=== PATIENT | female | born 1940 | race Caucasian/White ===

== ENCOUNTER 2024-02-19 12:07 | Emergency (ER) | payer MEDICARE, OTHER, SELFPAY ==
--- NOTE | ~2024-02-19 | US_ITS ---
EXAMINATION: US TRIPLEX LOWER EXTREMITY, BILATERAL CLINICAL INFORMATION: Pain COMPARISON: None available. TECHNIQUE: Color-flow triplex imaging with spectral analysis and compression Doppler were performed on the bilateral lower extremities. FINDINGS: Respiratory variation, normal compression and augmented flow are noted throughout the bilateral lower extremities. The visualized common femoral vein, superficial femoral vein, profunda femoral vein, popliteal vein and midcalf peroneal and posterior tibial venous segments show no evidence of deep venous thrombosis bilaterally. Popliteal fossa Rea's cyst measuring 4.1 x 0.9 x 2.8 cm. US/US venous duplex LE BI IMPRESSION: No evidence of deep venous thrombosis involving the bilateral lower extremities. Left Rea's cyst measuring 4.1 cm. Electronically signed by: Grey Galindo MD 02/19/2024 06:26 PM EDT
--- NOTE | ~2024-02-19 | CT_ITS ---
EXAMINATION: CT ABDOMEN AND PELVIS WITH CONTRAST CLINICAL INFORMATION: Right sided abdominal pain. S/P cholecystectomy COMPARISON: 10/25/2016 TECHNIQUE: Multidetector volumetric imaging was performed from the superior aspect of the liver through the pubic symphysis following administration of 85 mL Omnipaque 300 intravenous contrast. Sagittal and coronal reformatted images were obtained on the technologist workstation.. This CT examination was performed using dose optimization techniques as appropriate, variously including the following: *Automated exposure control *Adjustment of mA and/or kV according to patient size (this includes techniques or standardized protocols for targeted exams where dose is matched to indication/reason for exam; i.e. extremities or head) *Use of iterative reconstruction technique DLP: 365 mGy-cm FINDINGS: LUNG BASES: The visualized lung bases are unremarkable. Moderate hiatal hernia LIVER, GALLBLADDER, AND BILIARY TREE: The liver is normal in size, shape, and attenuation. No focal hepatic lesion or biliary ductal dilatation is present. Gallbladder surgically absent with multiple surgical clips in the gallbladder fossa PANCREAS: Unremarkable. SPLEEN: Enlarged measuring 14.5 cm in length ADRENAL GLANDS: Unremarkable. KIDNEYS AND URETERS: The kidneys are normal in size, shape, and attenuation. No hydronephrosis, hydroureter, or perinephric stranding. No calculi. BLADDER: Unremarkable. GASTROINTESTINAL TRACT: Anastomotic staple line in the rectosigmoid colon. Few scattered diverticula are seen but no colonic wall thickening or pericolonic inflammatory change to suggest diverticulitis within the redundant colon. Visualized small bowel unremarkable ABDOMINAL WALL: Postoperative changes LYMPHOVASCULAR STRUCTURES: Vascular calcification within the aortoiliac system PELVIC VISCERA: Presumably surgically absent OSSEOUS STRUCTURES: Multilevel degenerative changes in the spine CT/CT abdomen pelvis w IV con IMPRESSION: Chronic appearing and postoperative changes as described. Electronically signed by: Alejandro Aguilar MD 02/19/2024 06:07 PM EDT RP
[2024-02-19 12:12] VITALS: BP 152/77; PULSE 109; RESP 18; TEMP 36.9; O2SAT 99; BMI 25.2
--- NOTE | 2024-02-19 12:20 | ED.GENADULT ---
HPI - General Adult General Chief complaint: General Medical Stated complaint: multiple problems Time Seen by Provider: 02/19/24 16:03 Source: patient, RN notes reviewed and old records reviewed Limitations: no limitations History of Present Illness ED Provider: Sera HPI narrative: 83F with past medical history significant for anemia, anxiety, bipolar disorder, cholecystectomy, chronic kidney disease, hypertension, depression, fatty liver, fibromyalgia, GERD, hiatal hernia, IBS, osteoarthritis, malabsorption presents with a chief complaint of RUQ pain, R calf pain and L foot swelling. Patient states she has had RUQ pain for 3 months, which has been worse recently which is why she presented today. Pain radiates to back and into R axilla and chest. Patient presents empty tramadol bottle and says she has been taking with mild relief. Admits to weight loss of 20lbs , diarrhea, and temperature of 100.1, incontience of bladder at baseline. Denies: incontinence of urine, nausea, vomiting, constipation, tarry stools. Patient also states she has had R calf pain, does not know how long this has been going on. States limbs is numb , cold to touch. Denies swelling or redness of the limb. Patient presents with L pain and swelling of the plantar surface of the foot. She is worried about infection . She does not know how long this has been going on, denies redness. She was seen at [facility] 01/11 for similar complaints, and provided records of that visit. Patient reports that after that admission she was discharged to rehab. She did not feel that she needs to go to rehab and does not wish to go back to rehab Related Data Previous Rx's ?Medication ?Instructions ?Recorded tramadol 25 mg tablet 25 mg PO Q4-6H PRN severe pain 02/19/24 (scale score 7-10) #12 tabs Allergies Allergy/AdvReac Type Severity Reaction Status Date / Time amoxicillin [AMOXICILLIN] Allergy Unknown VIRAL Verified 02/19/24 12:20 MENINGITIS Review of Systems Constitutional: Constitutional: Reports body ache(s), Reports chills, Reports fever(s), Reports lethargy, Reports weakness and Reports weight loss (20lbs stated by patient) ENT: Reports dysphagia Cardiovascular: Cardiovascular: Reports chest pain, Reports leg edema and Denies dyspnea Respiratory: Respiratory: Denies cough and Denies dyspnea Gastrointestinal: Gastrointestinal: Denies melena, Denies hematochezia, Denies coffee ground emesis, Reports dysphagia, Reports diarrhea, Denies nausea and Denies vomiting Musculoskeletal: Musculoskeletal: Reports arthralgias, Reports joint swelling and Reports muscle weakness Neurologic: Reports weakness PMFSH Social History Social History Smoked in Last 30 Days: No Use of substances other than those prescribed or required for medical reasons: No Advance Directives: No Advance Directives Information Provided: No Physical Exam ED Vital Signs: Vital Signs - 24 hr 02/19/24 12:12 02/19/24 15:53 02/19/24 18:42 Temperature 98.4 F Pulse Rate 109 H 109 H 100 Respiratory Rate 18 18 18 Blood Pressure 152/77 H 139/82 151/84 H Pulse Oximetry 99 97 98 Oxygen Delivery Method Room Air Room Air Room Air 02/19/24 19:24 Temperature 98.4 F Pulse Rate 98 Respiratory Rate 18 Blood Pressure 151/84 H Pulse Oximetry 98 Oxygen Delivery Method Room Air BMI result Body Mass Index 25.2 Const General: healthy appearing, no acute distress, alert and awake Nutritional Appearance: well nourished Orientation/consciousness: patient oriented x3 HENMT Head: Yes normocephalic and Yes atraumatic Eyes Eyelids: Yes eyelids normal Conjunctivae: conjunctivae normal Sclerae: sclerae normal Resp Effort & Inspection: normal respiratory effort, able to speak in complete sentences, no audible wheezes and not labored Auscultation: clear to auscultation bilaterally Cardio Rate: regular rate Rhythm: regular rhythm GI Inspection: No distended Palpation (GI): Soft to palpation, Tenderness to palpation present (GI) (diffusely) and no guarding Skin General skin exam: no rashes or lesions noted and elasticity normal Neuro General: patient oriented x3 Extrem Other: Moving all extremities well without any obvious deformities. DP pulses 2+ and equal bilaterally. Course Course Course Narrative: RME performed by Tiera Winn PA-C. Patient is an 83 year old assigned female at presenting to the emergency department with multiple complaints / concerns. Detailed physical exam and review of systems are deferred to the jalousies installer. Labs ordered. Patient placed back in the waiting room pending room availability and results. Reevaluation(s) Reevaluation #1: Discussed workup with the patient, she was provided with a copy of her lab results and imaging results. The patient is stable for discharge at this time. Time: 19:52 Medications Administered Discontinued Medications Generic Name Dose Route Start Last Admin Trade Name Maria Elena PRN Reason Stop Dose Admin Iohexol 100 ml 02/19/24 17:20 02/19/24 17:21 Iohexol 350 Mg/Ml 100 Ml Infus..Btl IV 02/19/24 17:21 85 ml ONCE ONE Administration Tramadol HCl 25 mg 02/19/24 19:03 02/19/24 19:12 Tramadol Hcl 50 Mg Tablet PO 02/19/24 19:04 25 mg ONCE ONE Administration Medical Decision Making Medical Decision Making MDM Narrative: 83-year-old female with past medical history as documented above presents for evaluation of numerous complaints. Her chief complaint appears to be abdominal pain. She has subjective fevers and chills, she is afebrile on arrival to the ER. She is status post cholecystectomy, her abdomen is soft but tender to palpation throughout. Her labs show no worrisome abnormalities, no leukocytosis or significant anemia despite her history of anemia. No left shift. Chemistries are within normal limits, renal function within normal limits. We will get ultrasounds to rule out DVT given the leg pain. We will get a CT scan of the abdomen pelvis to evaluate for any identifiable cause of her pain. She has a history of IBS and this may be chronic abdominal pain. Her vital signs are stable. Differential Diagnosis Differential Diagnoses: The differential diagnosis associated with the presentation includes Chronic abdominal pain IBS UTI DVT Lab Data MDM Lab Attestation statement: I reviewed the patient's lab results. 02/19/24 13:52 02/19/24 13:52 Labs: Lab Results 02/19/24 02/19/24 Range/Units 13:52 15:55 WBC 5.6 (4.8-10.8) X10*3/uL RBC 4.33 (4.20-5.50) X10*6/uL Hgb 12.0 (12.0-16.0) g/dl Hct 37.4 (37.0-47.0) % MCV 86.4 (80.0-98.0) fL MCH 27.7 (27.0-33.0) pg MCHC 32.1 (31.0-35.0) g/dl RDW 16.1 H (11.0-16.0) % Plt Count 202 (160-400) X10*3/uL MPV 9.3 L (9.4-12.3) fL Immature Gran % (Auto) 0.2 (0.0-0.4) % Neut % (Auto) 66.7 (45-73) % Lymph % (Auto) 24.0 (20-40) % Brooke % (Auto) 6.9 (2-11) % Eos % (Auto) 1.8 (0-4) % Baso % (Auto) 0.4 (0-2) % Lymph # (Auto) 1.4 (1.2-4.9) X10*3/uL Brooke # (Auto) 0.4 (0.1-1.2) X10*3/uL Eos # (Auto) 0.1 (0.0-0.4) X10*3/uL Baso # (Auto) 0.0 (0.0-0.2) X10*3/uL Abs Immat Gran (auto) 0.01 (0.00-0.03) X10*3/uL Absolute Neuts (auto) 3.8 (2.0-8.3) x10*3/uL Absolute Nucleated RBC 0.000 (0.0-0.012) X10*3/uL Nucleated RBC % (auto) 0.0 (0.0-0.2) /100WBC Sodium 141 (135-145) mmol/L Potassium 4.0 (3.3-5.1) mmol/L Chloride 105 (96-108) mmol/L Carbon Dioxide 27 (22-29) mmol/L Anion Gap 13 (12-20) BUN 12 (9-16) mg/dL Creatinine 0.81 (0.5-1.4) mg/dL Estim Creat Clear Calc 40.6 Estimated GFR > 60 Random Glucose 85 (60-115) mg/dL Calcium 9.7 (8.4-10.2) mg/dL Magnesium 2.4 (1.6-2.6) mg/dL Total Bilirubin 0.4 (0.0-1.0) mg/dL AST 20 (5-31) U/L ALT 12 (0-31) U/L Alkaline Phosphatase 78 (39-117) U/L Total Protein 7.4 (6.5-8.0) g/dL Albumin 4.3 (3.5-5.0) g/dL Urine Color Yellow Urine Appearance Clear Urine pH 6.0 (5.0-9.0) Ur Specific [place] 1.015 (1.005-1.025) Urine Protein Negative (Neg-Trace) mg/dL Urine Glucose (UA) Negative (Negative) mg/dL Urine Ketones Negative (Negative) mg/dL Urine Blood Negative (Negative) Urine Nitrite Negative (Negative) Ur Leukocyte Esterase Trace H (Negative) Urine RBC 0-2 (0-2) /HPF Urine WBC 0-5 (0-5) /HPF Ur Squamous Epith Cells 0-2 (0-2) /HPF Urine Bacteria None Seen (None Seen) Hyaline Casts 0-2 (0-2) /LPF Influenza Type A (PCR) NEGATIVE (Negative) Influenza Type B (PCR) NEGATIVE (Negative) RSV RNA Qual (PCR) NEGATIVE (Negative) SARS-CoV-2 RNA (RT-PCR) NEGATIVE (Negative) Radiology Impression Discussion of test interpretation with radiology: I have reviewed the radiologist's reading. Radiologist Impression: FINDINGS: Respiratory variation, normal compression and augmented flow are noted throughout the bilateral lower extremities. The visualized common femoral vein, superficial femoral vein, profunda femoral vein, popliteal vein and midcalf peroneal and posterior tibial venous segments show no evidence of deep venous thrombosis bilaterally. Popliteal fossa Rea's cyst measuring 4.1 x 0.9 x 2.8 cm. US/US venous duplex LE BI IMPRESSION: No evidence of deep venous thrombosis involving the bilateral lower extremities. Left Rea's cyst measuring 4.1 cm. Electronically signed by: Grey Galindo MD 02/19/2024 06:[address]/CT abdomen pelvis w IV con IMPRESSION: Chronic appearing and postoperative changes as described. Electronically signed by: Alejandro Aguilar MD 02/19/2024 06:07 PM EDT Discharge Plan Discharge Clinical Impression: Abdominal pain, Chronic leg pain Patient Disposition: Home, Self-Care Instructions: Abdominal Pain (ED) Additional Instructions: Your workup in the ER today was reassuring. This includes your blood work, urinalysis, viral swabs. Follow-up with your primary doctor for further evaluation and management You may return for new or worsening symptoms Prescriptions: New tramadol 25 mg tablet 25 mg PO Q4-6H PRN (Reason: severe pain (scale score 7-10)) Qty: 12 0RF Interventions: ED Discharge Assessment Last Done: 02/19/24 19:24 Discharge Date/Time: 02/19/24 19:25 Print Language: Uzbek
[2024-02-19 14:07] LABS: MANUAL DIFF FLAG NO
[2024-02-19 14:24] LABS: Alanine Aminotransferase 12 U/L (0-31); Albumin Level 4.3 g/dL (3.5-5.0); Alkaline Phosphatase 78 U/L (39-117); Anion Gap 13 (12-20); Aspartate Amino Transferase 20 U/L (5-31); Bilirubin Total 0.4 mg/dL (0.0-1.0); Blood Urea Nitrogen 12 mg/dL (9-16); Calcium 9.7 mg/dL (8.4-10.2); Carbon Dioxide 27 mmol/L (22-29); Chloride 105 mmol/L (96-108); Creatinine Clr Calc Pharmacy 40.6; Estimated Glomerular Filt Rate > 60; Glucose Random 85 mg/dL (60-115); Magnesium 2.4 mg/dL (1.6-2.6); Sodium 141 mmol/L (135-145); Total Protein 7.4 g/dL (6.5-8.0)
[2024-02-19 14:26] LABS: Basophils Percent Auto 0.4 % (0-2); Eosinophils Absolute Auto 0.1 X10*3/uL (0.0-0.4); Eosinophils Percent Auto 1.8 % (0-4); Hematocrit 37.4 % (37.0-47.0); Imm Gran Abs Auto 0.01 X10*3/uL (0.00-0.03); Imm Gran Pct Auto 0.2 % (0.0-0.4); Lymphocytes Absolute Auto 1.4 X10*3/uL (1.2-4.9); Mean Corpuscular HGB Conc 32.1 g/dl (31.0-35.0); Mean Corpuscular Hemoglobin 27.7 pg (27.0-33.0); Mean Corpuscular Volume 86.4 fL (80.0-98.0); Mean Platelet Volume 9.3 fL (9.4-12.3); Monocytes Absolute Auto 0.4 X10*3/uL (0.1-1.2); Monocytes Percent Auto 6.9 % (2-11); Neutrophils Absolute Auto 3.8 x10*3/uL (2.0-8.3); Neutrophils Percent Auto 66.7 % (45-73); Platelet Count 202 X10*3/uL (160-400); Red Blood Count 4.33 X10*6/uL (4.20-5.50); Red Cell Distribution Width 16.1 % (11.0-16.0); White Blood Count 5.6 X10*3/uL (4.8-10.8)
[2024-02-19 15:04] LABS: Influenza A PCR NEGATIVE (Negative); Influenza B PCR NEGATIVE (Negative); Resp Syncy Virus RNA Qual PCR NEGATIVE (Negative); SARS COV2 PCR INHOUSE NEGATIVE (Negative)
--- NOTE | 2024-02-19 15:17 | PC.NURSE ---
Patient offers multiple complaints- states she has no teeth, the she needs a right knee replacement, that her 6 is sticking 6 inches out , that she is having troube swalowing on the right side, has lost 20lbs over the last few months. Reports feet are numb and that she vomits food back up after eating.
[2024-02-19 15:53] VITALS: BP 139/82; PULSE 109; RESP 18; O2SAT 97
[2024-02-19 16:01] LABS: Appearance Urine Clear; Color Urine Yellow; Glucose Urine UA Negative (Negative); Leukocyte Esterase Urine Trace (Negative); Nitrite Urine Negative (Negative); Specific Gravity - Urine 1.015 (1.005-1.025); UMIC TRIGGER UACC YES; Urine Blood Negative (Negative); Urine Ketones Negative (Negative); Urine Protein Negative (Neg-Trace)
[2024-02-19 16:03] LABS: Bacteria Urine None Seen (None Seen); Hyaline Casts Urine 0-2 /LPF (0-2); RBC Urine 0-2 /HPF (0-2); Squamous Epithelial Cell Urine 0-2 /HPF (0-2); WBC Urine 0-5 /HPF (0-5)
[2024-02-19] MEDS: iohexoL 350 MG/ML 100 ML INFUS..BTL IV (17:21)
--- NOTE | 2024-02-19 17:27 | ECG_ITS ---
Test Reason : PAIN Blood Pressure : / mmHG Vent. Rate : 095 BPM Atrial Rate : 095 BPM P-R Int : 212 ms QRS Dur : 096 ms QT Int : 400 ms P-R-T Axes : 053 042 059 degrees QTc Int : 502 ms Sinus rhythm with 1st degree A-V block Low voltage QRS Prolonged QT Abnormal ECG When compared with ECG of 25-OCT-2016 14:56, QT has lengthened Referred By: Dl Zamora Electronically Signed By:JASIEL MUÑOZ
[2024-02-19 18:42] VITALS: BP 151/84; PULSE 100; RESP 18; O2SAT 98
--- NOTE | 2024-02-19 18:58 | PC.NURSE ---
Report received from Karlene LEAL, assume care of pt at this time
[2024-02-19] MEDS: traMADoL HCL 50 MG TABLET 25 MG PO (19:12)
[2024-02-19 19:24] VITALS: BP 151/84; PULSE 98; RESP 18; TEMP 36.9; O2SAT 98
== END 2024-02-19 19:25 | disposition home or self-care (01) ==
PROVIDERS: Physician Assistant Medical; Emergency Provider Emergency Medicine; PCP Internal Medicine
DX: R10.11 Right upper quadrant pain (principal); G89.29 Other chronic pain; M79.605 Pain in left leg; M79.604 Pain in right leg; Z03.818 Encounter for observation for suspected exposure to other biological agents ruled out; M71.22 Synovial cyst of popliteal space [Baker], left knee; I10 Essential (primary) hypertension
CPT/HCPCS: 0241U; 74177; 80053; 81001; 81003; 83735; 85025; 93005; 93970; 99284; Q9967

== ENCOUNTER 2024-04-24 14:18 | Outpatient (REF) | payer MEDICARE, OTHER, SELFPAY ==
--- NOTE | ~2024-04-24 | XR_ITS ---
EXAMINATION: XR CHEST 2 VIEWS CLINICAL INFORMATION: Bronchitis. COMPARISON: Prior chest radiographs, most recently 10/25/2016. TECHNIQUE: Frontal and lateral views of the chest were obtained. FINDINGS: The heart, great vessels, pulmonary vasculature and mediastinum are normal. The lungs show no focal infiltrate, effusion or pneumothorax. There is mild bilateral bronchial wall thickening. There is no acute osseous abnormality. There are right upper quadrant surgical clips. XR/XR chest 2V IMPRESSION: 1. No focal infiltrate or congestive heart failure is seen. 2. There is mild bilateral bronchial wall thickening, consistent with the provided history of bronchitis. Electronically signed by: Nik Long MD 04/24/2024 06:44 PM EST RP
== END 2024-04-24 14:19 | disposition home or self-care (01) ==
LOC: HO.XRAY 14:18
PROVIDERS: PCP Internal Medicine; Visit Provider Otolaryngology
DX: J40 Bronchitis, not specified as acute or chronic (principal)
CPT/HCPCS: 71046

== ENCOUNTER 2025-05-28 13:35 | Emergency (ER) | payer MEDICARE, OTHER, SELFPAY ==
--- OUTSIDE RECORDS SUMMARY | 2015-10-23 23:00 | XMS_ITS | Encounter Summary ---
Author Organization [facility] General [facility] Address [address] [place] [phone] Phone Care Team Providers Care Well Testing Operator Name Role Phone Samir Lima MD Primary Care Provider Nnadmi esqueda Encounter Details Date Type Department Care Team (Late st Contact Info) Description 10/24/2015 Hospital Encounter [facility] General Imaging [address] [place] [address] Steph Mcneil MD [address] [place] [address] [email or web address] Social History Tobacco Use Types Packs/Day Years Used Date Smoking Tobacco: Former Cigarettes Smokeless Tobacco: Never Comments:Quit smokin05/26 Education Answer Date Recorded Are you interested in more education? Not on mercedez e 10/08/2022 Are you concerned about learning? Not on file 10/08/2022 No 10/08/2022 No 10/08/2022 Digital Access Answer Date Recorded No 11/09/2022 No 11/09/2022 Reliable internet access at home? Not on file 11/09/2022 Device with a working camera? Not on file Intimate Partner Violence Answer Date R ecorded Are you denied basic needs s uch as food, clothing, or medical care? No 11/27/2024 In the past 12 months have y ou been in a relationship with a person who hurts, threatens, or tries to control you? No 11/27/2024 Are you denied basic needs s uch as food, clothing, or medical care? No 11/27/2024 In the past 12 months have y ou been in a relationship with a person who hurts, threatens, or tries to control you? No 11/27/2024 Comments No Sex and Gender Information Value Date Recorded Sex Assigned at Female 11/27/2024 10:09 AM EDT Legal Sex Female 7:16 PM EST Gender Identity Female 11/27/2024 10:09 AM EDT Sexual Orientation Straight 11/27/2024 10 :09 AM EDT documented as of this encounter Functional Status * Calculated C-SSRS Risk Score (Lifetime/Recent) Answer Date of Assessment Author No Risk Indicated 11/27/2024 10:09 AM EDT Jessica Wilson, ELVIS * [place] Suicide Severity Rating Scale (Screener/Recent Self-Report) Question Answer Date of Assessment Author 1. Wish to be (Past 1 Month) No 025 10:09 AM EDT Jessica Scanlon, ELVIS 2. Non-Specific Active Suici korina Thoughts (Past 1 Month) No 11/27/2024 10:09 AM EDT Ayaka Scanlon RN 6. Suicidal Behavior (Lifetime) No 5 10:09 AM EDT Jessica Scanlon, RN documented as of this encounter Plan of Treatment Not on file documented as of this encounter Procedures Procedure Name Priority Date/Time Associated Diagnosis Comments MRI SPINE NEUROLOGIC FOCUS OUTSIDE (NO INTERPRETATION) Routine 10/24/2015 12:00 AM EDT documented in this encounter Results * MRI Spine (Neuro) Outside (No Interpretation) (10/24/2015 12:00 AM EDT) Narrative [facility] IMG INTERFACES - 11/26/2015 2:27 PM EDT This study is for PACS storage only and not for interpretation. Procedure Note SYSTEMGENERATED, DOCUMENTATION - 11/26/2015 This study is for PACS storage only and not for interpretation. Steph Mcneil MD IMG OUTSIDE IMAGING W/ OUT INTERPRETATION Final Result [facility] IMG INTERFACES documented in this encounter Visit Diagnoses Not on filedocumented in this encounter Care Teams Well Testing Operator Relationship Specialty Start Date End Date Samir Lima MD PCP - General Family Medicine 02/25/15 01/24/20 documented as of this encounter Additional Source Comments The information contained in this document represents components of the legal health record. It is not the complete legal health record.[facility]
--- OUTSIDE RECORDS SUMMARY | 2025-05-26 20:10 | XMS_ITS | Encounter Summary ---
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 Name Role Phone Bart Harding DO Primary Care Provider Reason for Referral * Home Health (Routine) - Closed Specialty Diagnoses / Procedures Referred By Rebeka noonan Referred To Contact Home Health Services Lakshmi Randall MD [address] [place] [address] Phone: tel: fax: [address], [address] [place] [address] Phone: tel: fax: Referral ID Status Reason Start Date Expiration Date V isits Requested Visits Authorized [id number] Closed Consult and Treat 05/27/2025 05/27/2026 1 1 Reason for Visit * Reason Comments Headache Dysphagia Back Pain Leg Pain [id number] Encounter Details Date Type Department Care Team ([facility] st Contact Info) Description 05/26/2025 8:10 PM EST - 05/27/2025 4:20 PM EST Emergency [facility] Emergency [address] [place] [address] Aaron Esparza MD [address] [place] [address] Lola Mckeon MD [address] [place] [address] Lakshmi Randall MD [address] [place] [address] Anxiety (Primary Dx); Other chronic pain Discharge Disposition: Home or Self Care Social History Tobacco Use Types Packs/Day Years Used Date Smoking Tobacco: Former Cigarettes Smokeless Tobacco: Never Passive Exposure Comments:qu it in 1979 Alcohol Use Standard Drinks/Week Comments Not Currently 0 (1 standard drink = 0.6 oz pur e alcohol) Comments Unknown Sex and Gender Information Value Date Recorded Sex Assigned at Not on file Legal Sex Female 9:10 AM EST Gender Identity Not on file Sexual Orientation Not on file documented as of this encounter Last Filed Vital Signs Vital Sign Reading Time Taken Comments Blood Pressure 141/67 05/27/2025 9:17 AM EST Pulse 100 05/27/2025 9:17 AM EST Temperature 36.6 C (97.9 F) 05/27/2025 9:17 AM EST Respiratory Rate 16 05/27/2025 9:17 AM EST Oxygen Saturation 95% 05/27/2025 9:17 AM EST Inhaled Oxygen Concentration - - Weight - - Height - - Body Mass Index - - documented in this encounter Discharge Instructions * Discharge Instructions* Aaron Esparza MD - 05/27/2025 1:49 AM EST You have chronic abdominal pain after gallbladder surgery he had previous CT scan which were negative for acute your blood reports also normal. Continue take your medication for anxiety and follow-upwith your PCP * Attachments The following attachments cannot be sent through Care Everywhere. * Anxiety: Is Treatment Right for You?: Video (Kiswahili) documented in this encounter Medications at Time of Discharge clonazePAM (KlonoPIN) 0.5 mg tablet Take 1 tablet (0.5 mg total) by mouth 1 (one) time each day in the morning. 08/16/2020 gabapentin (NEURONTIN) 300 mg capsule Take 1 capsule (300 mg total) by mouth 3 (three) times a day. omeprazole (PriLOSEC) [address] capsule Take 1 capsule (20 mg total) by mouth 1 (one) time each day. sertraline (ZOLOFT) 100 mg tablet Take 1.5 tablets (150 mg total) by mouth 1 (one) time each day. documented as of this encounter Discharge Disposition Disposition Code Departure Means Destination Comment s Home or Self Care documented in this encounter Progress Notes * Denise Rico RN - 05/27/2025 11:52 AM EST Met with pt again at Dr. Randall's request to discuss rehab referral. Pt continues to decline rehab referrals despite PT recommendations. Updated Dr. Randall and nurse Meri. Plan is for patient to d/c home with services through [facility] and referral to [facility]. Nurse to arrange transport. * Denise Torres PT - 05/27/2025 11:45 AM EST [facility] Physical Therapy Evaluation & Treatment PT Discharge Recommendations: prison facility placement Staff Recommendations for safe patient handlin person Sharif with wwalker unable amb 50ft AM-PAC 6 Clicks Scoring Form: Unable: 1 A Lot: 2 A Little: 3 None: 4 How much difficulty does the patient currently have? Turning over in bed (including adjustment of bedclothes, sheets, and blankets) [] [] [] [x] Sitting down on and standing up from a chair with arms (wheelchair, bedside commode etc [] [] [x] [] Moving from lying on back to sitting on the side of the bed [] [] [x] [] How much help from another person does the patient currently need? Moving to and from a bed to a chair ( including a wheelchair) [] [] [x] [] To walk in hospital room [] [] [x] [] Climbing 3-5 steps with a railing [x] [] [] [] Score: 17 /24 score indicates the pt would benefit from STR after acute discharge Precautions Medical Precautions: Fall Risk Safety Interventions: Call moran within reach, ID band on, Bed alarm, Side rails up x1 RUE Weight Bearing Status: Full LUE Weight Bearing Status: Full RLE Weight Bearing Status: Full LLE Weight Bearing Status: Full Fall prevention education provided including use of call light in hospital, use of appropriate assistive device, safe mobility techniques, and safety measures at home. PT Received On: 05/27/25 PT Start Time: 0800 PT Stop Time: 0845 PT Time Calculation (min): 45 min General Family/Caregiver Present: No Precautions Medical Precautions: Fall Risk Safety Interventions: Call moran within reach, ID band on, Bed alarm, Side rails up x1 RUE Weight Bearing Status: Full LUE Weight Bearing Status: Full RLE Weight Bearing Status: Full LLE Weight Bearing Status: Full Cognition Overall Cognitive Status: Within Functional Limits Arousal/Alertness: Appropriate responses to stimuli Orientation Level: Able to orient with prompts Following Commands: Follows one step commands consistently Hearing: Intact Vision: Intact Speech: Impaired Integumentary: NT History of Present Illness: Patient is a 84 y.o. female admitted to [facility] on 05/26/2025. Problem List[1] Medical History[2] Surgical History[3] Social History Home Living Environment: Home Living Type of Home: [facility] Lives With: Alone Home Adaptive Equipment: Cane, Walker - rolling Home Layout: One level Home Access: Stairs to enter with rails Entrance Stairs-Rails: Rail on the left going up Entrance Stairs-Number of Steps: 15 Prior Function Level of [place]: Independent with mobility and functional transfers Ambulation Status: Household ambulator Indoor Mobility Assistance: Independent Stairs Assistance : Independent Prior Device Use: Cane General Assessment 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 : No 05/27/25 0800 PT Last Visit PT Received On 05/27/25 General Family/Caregiver Present No PT Time Calculation PT Start Time 0800 PT Stop Time 0845 PT Time Calculation (min) 45 min Precautions Medical Precautions Fall Risk Safety Interventions Call moran within reach;ID band on;Bed alarm;Side rails up x1 RUE Weight Bearing Status Full LUE Weight Bearing Status Full RLE Weight Bearing Status Full LLE Weight Bearing Status Full Oxygen Therapy Oxygen Therapy None (Room air) Pain Assessment Pain Assessment 0-10 Pain Score 5 - Moderate pain Pain Type Acute pain Pain Location Abdomen Pain Orientation Right;Lower Multiple Pain Sites Two Pain 2 Pain Score 2 5 - Moderate pain Pain Type 2 Chronic pain Pain Location 2 Knee Pain Orientation 2 Right Cognition Overall Cognitive Status WFL Arousal/Alertness Appropriate responses to stimuli Orientation Level Able to orient with prompts Following Commands Follows one step commands consistently Home Living Type of Home Townhouse Lives With Alone Home Adaptive Equipment Cane;Walker - rolling Home Layout One level Home Access Stairs to enter with rails Entrance Stairs-Rails Rail on the left going up Entrance Stairs-Number of Steps 15 Prior Function Level of [place] Independent with mobility and functional transfers Ambulation Status Household ambulator Indoor Mobility Assistance Independent Stairs Assistance Independent Prior Device Use Cane Activity Tolerance Endurance Tolerates 10 - 20 min exercise with multiple rests Sensation Light Touch Partial deficits in the RLE;Partial deficits in the LLE (numbness in B feet) Coordination Coordination Functional Static Sitting Balance Static Sitting-Level of Assistance Standby assistance Static Standing Balance Static Standing-Level of Assistance Contact guard Bed Mobility Rolling Left and Right Assistance Contact guard Rolling Left and Right Deficit Steadying;Verbal cueing;Supervision/safety awareness Lying to Sitting Assistance Contact guard Lying to Sitting Deficit Steadying;Verbal cueing;Supervision/safety awareness;Increased time to complete Transfers Sit to Stand Assistance Contact guard Sit to Stand Deficit Steadying;Supervision/safety awareness;Verbal cueing;Increased time to complete Ambulation Walking Assistance Contact guard;Minimum assistance Walking Deficit Steadying;Verbal cueing;Supervision/safety awareness;Increased time to complete;Assist for foot placement;Assist for weight shifting;Limited endurance;Impaired balance;LE weakness Device Rolling walker Distance Ambulated (ft) 50 Comments pt amb with NBOS and occasionally crossed feet and is very unstable and holding walker outtoo far in front, stated she has been falling into the gómez using her SPC at home but doesnt have room to amb with wwalker d/t items books, papers all over RUE Assessment RUE Assessment Within Functional Limits LUE Assessment LUE Assessment Within Functional Limits RLE Assessment RLE Assessment Within Functional Limits RLE Assessment Comments pain in knee, 3-/5 LLE Assessment LLE Assessment Within Functional Limits LLE Assessment Comments 3/5 PT Assessment PT Assessment Results Decreased strength;Decreased range of motion;Decreased endurance;Impaired balance;Impaired gait;Decreased mobility Prognosis Good Evaluation/Treatment Tolerance Patient limited by pain Comments pain in amb worried about her akamylasia?? and states thats why shes here, talked excessantly about her hx Medical Staff Made Aware Yes Plan PT Discharge Recommendations prison facility placement PT - Evaluation Status Complete PT Evaluation Time Entry PT Evaluation (Moderate) Time Entry 45 Treatment performed during evaluation: None performed ADDITIONAL COMMENTS: Chart reviewed. RN clears pt for session. Pt agrees to participate and presented in bed upon PT arrival. All lines in place. Gait belt utilized throughout treatment to maximize safety. Medical precautions observed appropriately. Initiated education on the importance of PT, bed mobility safety, Transfer Safety, Ambulation Safety , Therapy Plan of Care, Home Safety, Energy Conservations strategies, and importance of OOB activity . Pt verbalized understanding. EXIT STATUS: Session ended with patient in bed, tray table and call light within reach, and RN made aware. Physical Therapy Assessment/Plan Rachna Miramontes is a 84 y.o. female admitted to [facility] on 05/26/2025 for No admission diagnoses are documented for this encounter. . Pt presents with decreased BLE strength, balance deficits, decreased activity tolerance, and far below functional baseline. Pt performed bed mobilityMinimal assist, Bedrail, HOB elevated, and Therapist assist, Transfers with Contact guard and Minimal assist, FWW and ambulates Contact guard and Minimal assist with FWW 50 ft . Pt will benefit from skilled acute PT during hospital stay to improve the deficits listed above and optimize function. PTrecommends prison facility placement when medically stable for safe discharge and to optimize functional mobility and independence. Goals Education Documentation No documentation found. Education Comments No comments found. Denise Torres PT [1] There is no problem list on file for this patient. [2] History reviewed. No pertinent past medical history. [3] Past Surgical History: Procedure Laterality Date BACK SURGERY HYSTERECTOMY * Meri Ceballos RN - 05/27/2025 11:28 AM EST This rn attempting to d/c patient, patient was able to successfully get dressed on her own. This rnthen in patients room to walk patient out to [facility] patient ambulating with can standby assist by thsi rn patient appeared to have very unsteady gait however insisted that she can walk on her own. Patient then out in lobby where ambulation was increasingly more unsteady, patient eventually lost balance and had a near fall and ws caught by this rn, patient did not hit the ground at any point was assisted to a chair in the waiting and then this rn obtained wheelchair assisted patientinto wheelchair and was wheeled back to her room. Provider Lakshmi Randall made aware, provider in room to speak with patient patient became increasingly ore hysterical with multiple complaints. Patientdoes not want rehab and does not want to go home. * Denise iRco RN - 05/27/2025 10:11 AM EST 05/27/25 1010 ED Transition Plan ED Transition Plan Home with Home Care Transportation Transportation at discharge Other (comment) (Lyft) What day is the transport expected? 05/27/25 Final Discharge Disposition Home Health Care Services ([facility]) This technical writer and Dr. Randall met with pt at bedside discussed PT recommendation of short term rehab. Pt is declining rehab at this time reports she has upcoming appointment Wednesday05/29/25 with orthopedic in [place] that she wants to attend. Pt accepted by [facility] for Mcfp and Physical Therapy. 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 Online referral placed [facility] as they are closed for the weekend. Requested ambulatory referral to home health order be completed. * Lakshmi Randall MD - 05/27/2025 9:41 AM EST Rachna Miramontes This patient was signed out to me by ED provider, Dr Mckeon. Briefly, the patient presented to the ED with body pain, headache, dizziness. Signed out to me pending CM/PT for possible subacute rehab. PT did recommend subacute rehab. When discussed with case management and myself at length patient does not want to go to rehab. States she has plenty of strength, does plenty of exercises at home, and has an upcoming appointment with her surgeon on Wednesday for further evaluation of her right knee which causes her a lot of issues. She states that if she goes to rehab she will not be able to have these issues addressed. She does appear to have capacity. CM working on VNA services- [facility] - and placing online referral to [facility] elder services for assessment for additional home support. Ambulatory referral orders placed. 1152-patient is trouble ambulating when leaving ED. Brought back into the department and spoke withpatient again. Requested for Denise case management to come back down to speak with patient again. Patient continues to refuse rehab despite being unsteady on her feet. She does have capacity understands risks of falling. Will have EMS give ride home. * Denise Rico RN - 05/27/2025 8:17 AM EST 05/27/25 9877 Initial Transition Plan Initial Transition Plan Home Health Care Discharge Planning Contact (Name, Phone #, Relationship) for DC Planning Emmy Gross friend [phone] Living Arrangements Alone Type of Residence Private residence (two family home with 15 steps to enter) Assistive Devices Cane Support Systems Extended family;Friends Medication Coverage Has Med Coverage Under Insurance Plan Yes Anticipated Discharge Needs Home Health RN;PT Met with pt in regards to discharge planning, demographics, PCP, insurance reviewed. Uses [facility] [place], [place]. Pt is not . Reports no current in home services. HCP on file friend Emmy. PT eval pending [facility] sent. Pt reports having been to [facility] in past. Referral made to [facility]. * Rosalie Daniel RN - 05/26/2025 10:29 PM EST NURSING SWALLOW SCREEN Exclusing Criteria: (choose one) exclusion criteria: No Exclusion Criteria - Proceed to 3 oz water trial Please Note: Only proceed with screen if 'No exclusion criteria' is selected. If 'no risk factors' selected proceed with diet per order. This is for someone with No aspiration risk factor. Stroke pts ARE a risk factor. If any exclusion criteria selected (except for 'No Risk Foctors' or 'No Exclusion Criteria') order Swallowing Evaluation /FEES by Speech /Language Pathologist. Screen may be repeated if patient shows clinical improvement (Clinical improvement is defined as patient not showing signs of any exclusion criteria. Assessment (3 oz Water Swallow Challenge): Pass/Fail: Pass Perform Water Swallow Challenge and Document Pass/Fail Instructions for completing water swallow challenge >Sit patient upright 80-90 degrees >Patients with HOB elevated 30-80 degrees are eligible for aspiration screen >Ask patient to drink 3 oz water (90 ml) from cup or through straw in sequential swallows without stopping (cup or straw can be held by patient or staff) >Assess for coughing or choking during and immediately after completion of drinking Pass: Able to drink 3 ounces of water with sequential swallows without coughing or choking during and/or immediately after. Notify MD of results and obtain diet order. Fail: Inability to perform sequential swallows, or coughing or choking during and/or immediately after drinking the 3 oz of water. Notify MD of results. Keep NPO including medication. Order Swallow Evaluation / FEES by Speech-Language Pathologist. Rosalie Daniel RN * Sybil Spears RN - 05/26/2025 8:11 PM EST BIBA from home. A&Ox4, ambulatory with cane, gcs 15 per ems. C/o head/neck pain, back pain, trouble swallowing, bilateral leg pain. Per Ems, pt anxious, tearful. States pain began 2 weeks ago andis getting progressively worse. Endorses a couple episodes of dizziness. Denies CP. * Aaron Esparza MD - 05/26/2025 7:58 PM EST HPI Chief Complaint Patient presents with Headache Dysphagia Back Pain Leg Pain [id number] 84 y.o. female with past medical history signficant for lumbar spinal stenosis anxiety, depression lives alone comes to emergency department for severe pain, right side of the abdomen, head/right neck, right upper extremity, with dizziness pain in the past, negative last time patient was seen at [facility] on 05/15/2025 CT scan of the abdomen was negative patient been having similar pain on the right upper abdomen since she had cholecystectomy done feels and looks very anxious [place] Coma Scale Score: 15 Patient History Medical History[1] Surgical History[2] Family History[3] Social History Tobacco Use Smoking status: Former Types: Cigarettes Smokeless tobacco: Not on file Substance Use Topics Alcohol use: Not Currently Drug use: Not on file Review of Systems Review of Systems All other systems reviewed and are negative. Physical Exam ED Triage Vitals [05/26/252112] Temp Heart Rate Resp BP 36.8 ??C (98.2 ??F) 99 18 (!) 153/77 SpO2 Temp Source Heart Rate Source Patient Position 97 % Oral -- Lying BP Location FiO2 (%) Right arm;Upper -- Physical Exam Vitals and nursing note reviewed. Appearance: Alert. Oriented X3. No acute distress. Very anxious Eyes: PERRLA. No pallor or icterus HEENT: ATNC, pharynx normal. oral mucosa moist Neck: Normal inspection. Neck supple. CVS: Normal heart rate and rhythm. No murmur/rub/gallop ,pulses normal. Respiratory: No respiratory distress. Breath sounds normal. No wheezing/rhonchi/rales, equal air entry bilateral Abdomen: Soft and tenderness right upper quadrant likely no rebound tenderness or guarding, no CVA tenderness no mass palpable bowel sounds are present Skin: Skin warm and dry. Normal skin color. Normal skin turgor. Extremities: No lower extremity edema. No calf tenderness Neuro: Oriented X 3. No motor deficit. No sensory deficit cranial nerves II to XII intact no cerebellar signs speech normal ED Course & MDM ED Course as of 05/28/25 0026 [place] May 27, 2025 0148 Stable labs old records reviewed from the [facility] has a normal CT scan of the abdomen was there was similar complaints discharge patient home in a.m. advised to follow-up with PCP patient feels safe to go home does not want to go to rehab/intermediate [MZ] 0203 Awaiting to go home in the morning. [EK] 0525 Patient stable all night in the department. Attempted to discharge her and she states she is having difficulties with ADLs. Wants to see Social Work/Case Management. PT eval ordered [EK] ED Course User Index [EK] Lola Mckeon MD [MZ] Aaron Esparza MD Clinical Impressions as of 05/28/2525 Anxiety Other chronic pain Medical Decision Making Patient 84 years old with multiple complaints takes clonazepam at home after giving lorazepam in the ER patient fell asleep labs are stable patient requesting to go home in a.m. labs reviewed from the discharge from the [facility] on 05/15/2025 CT scan was normal Procedures Aaron Esparza MD 05/26/25 2145 Aaron Esparza MD 05/27/25 0110 Aaron Esparza MD 05/27/25 0150 [1] No past medical history on file. [2] Past Surgical History: Procedure Laterality Date BACK SURGERY HYSTERECTOMY [3] No family history on file. Aaron Esparza MD 05/28/2525 * Lola Mckeon MD - 05/26/2025 7:58 PM EST This patient's care was signed out to me by the offgoing provider. Please see her/his note for further details regarding initial presentation, history of present illness, physical exam, and medical decision making. At time of signout, the following was pending: discharge in the AM. See ED course below. ED Course as of 05/27/25 1116 Sun May 27, 2025 0148 Stable labs old records reviewed from the [facility] has a normal CT scan of the abdomen was there was similar complaints discharge patient home in a.m. advised to follow-up with PCP patient feels safe to go home does not want to go to rehab/intermediate [MZ] 0203 Awaiting to go home in the morning. [EK] 0525 Patient stable all night in the department. Attempted to discharge her and she states she is having difficulties with ADLs. Wants to see Social Work/Case Management. PT eval ordered [EK] ED Course User Index [EK] Lola Mckeon MD [MZ] Aaron Esparza MD Clinical Impressions as of 05/27/25 1116 Anxiety Other chronic pain No orders to display Labs Reviewed CBC WITH AUTO DIFFERENTIAL - Abnormal Result Value WBC 5.3 RBC 4.10 Hemoglobin 10.6 (*) Hematocrit 32.8 (*) MCV 80.6 MCH 26.0 (*) MCHC 32.3 RDW 16.8 (*) Platelets 199 MPV 9.7 NRBC 0.0 NRBC Absolute 0.00 Neutrophils Relative 67.8 Lymphocytes Relative 22.2 Monocytes Relative 7.3 Eosinophils Relative 2.1 Basophils Relative 0.2 Immature Granulocytes Relative 0.4 Neutrophils Absolute 3.61 Lymphocytes Absolute 1.18 Monocytes Absolute 0.39 Eosinophils Absolute 0.11 Basophils Absolute 0.01 Immature Granulocytes Absolute 0.02 COMPREHENSIVE METABOLIC PANEL - Normal Sodium 139 Potassium 4.2 Chloride 101 CO2 29 Anion Gap 9 Glucose 84 BUN 19 Creatinine 0.86 eGFR 66 BUN/Creatinine Ratio 22.1 Calcium 9.2 AST (SGOT) 26 ALT (SGPT) 12 Alkaline Phosphatase 80 Total Protein 7.3 Albumin 4.7 Total Bilirubin 0.3 LIPASE - Normal Lipase 43 URINALYSIS WITH REFLEX MICROSCOPIC - Normal Specific [place] Urine 1.019 pH, Urine 6.0 Leukocytes, Urine Negative Nitrite, Urine Negative Protein, Urine Negative Glucose, Urine Negative Ketones, Urine Negative Urobilinogen, Urine 0.2 Bilirubin, Urine Negative Blood, Urine Negative CBC AND DIFFERENTIAL Narrative: The following orders were created for panel order CBC and differential. Procedure Abnormality Status --------- ------ CBC auto differential[[id number]] Abnormal Final result Please view results for these tests on the individual orders. URINALYSIS WITH REFLEX MICROSCOPIC Narrative: The following orders were created for panel order Urinalysis with reflex microscopic ([id number]). Procedure Abnormality Status --------- ------ Urinalysis with reflex ...[[id number]] Normal Final result Please view results for these tests on the individual orders. Clinical Impression(s): Final diagnoses: [F41.9] Anxiety [G89.29] Other chronic pain Discharge Previous Medications CLONAZEPAM (KLONOPIN) 0.5 MG TABLET Take 1 tablet (0.5 mg total) by mouth 1 (one) time each day in the morning. GABAPENTIN (NEURONTIN) 300 MG CAPSULE Take 1 capsule (300 mg total) by mouth 3 (three) times a day. OMEPRAZOLE (PRILOSEC) [address] CAPSULE Take 1 capsule (20 mg total) by mouth 1 (one) time each day. SERTRALINE (ZOLOFT) 100 MG TABLET Take 1.5 tablets (150 mg total) by mouth 1 (one) time each day. ED Medication Administration from 05/26/20258 to 05/27/2025 1116 Date/Time Order Dose Route Action Action by 05/26/20252143 EST LORazepam (ATIVAN) injection 1 mg 1 mg intravenous Given Latrice Daniel 05/27/2025 0859 EST clonazePAM (KlonoPIN) tablet 0.5 mg 0.5 mg oral Given Rina Ceballos 05/27/2025 0859 EST gabapentin (NEURONTIN) capsule 300 mg 300 mg oral Given Rina Ceballos 05/27/2025 0859 EST pantoprazole (PROTONIX) EC tablet 40 mg 40 mg oral Given Rina Ceballos 05/27/2025 0859 EST sertraline (ZOLOFT) tablet 150 mg 150 mg oral Given Rina Ceballos MD 05/27/25 0260 Lola Mckeon MD 05/27/25 0573 Lola Mckeon MD 05/27/25 0564 Lola Mckeon MD 05/27/25 1117 documented in this encounter Miscellaneous Notes * ED Bed Hold Note - Damaris Garcia RN - 05/26/2025 8:10 PM EST Bed: GN-09 Expected date: Expected time: Means of arrival: Comments: WSFD: 84 F anxiety, body pain, headache documented in this encounter Plan of Treatment Scheduled Referrals Name Type Priority Associated Diagnoses Order Schedule Ambulatory referral to Home Health Outpatient Referral Routine 1 Occurrence s starting 05/27/2025 until 05/27/2026 documented as of this encounter Procedures Procedure Name Priority Date/Time Associated Diagnosis Comments URINALYSIS WITH REFLEX MICROSCOPIC STAT 05/26/2025 11:05 PM EST URINALYSIS WITH REFLEX MICROSCOPIC STAT 05/26/2025 11:05 PM EST CBC WITH AUTO DIFFERENTIAL STAT 05/26/2025 9:29 PM EST CBC AND DIFFERENTIAL STAT 05/26/2025 9:29 PM EST LIPASE STAT 05/26/2025 9:29 PM EST COMPREHENSIVE METABOLIC PANEL STAT 05/26/2025 9:29 PM EST documented in this encounter Results * Urinalysis with reflex microscopic (05/26/2025 11:05 PM EST) Specific [place] Urine 1.019 1.003 - 1.030 LAB URINALYSIS - AUTOMATED METHOD 05/26/2025 11:53 PM [facility] pH, Urine 6.0 5.0 - 8.0 pH LAB URINALYSIS - AUTOMATED METHOD 05/26/2025 11:53 PM [facility] Leukocytes, Urine Negative Negative LAB URINALYSIS - AUTOMATED METHOD 05/26/2025 11:53 PM [facility] Nitrite, Urine Negative Negative LAB URINALYSIS - AUTOMATED METHOD 05/26/2025 11:53 PM [facility] Protein, Urine Negative <=Trace mg/dL LAB URINALYSIS - AUTOMATED METHOD 05/26/2025 11:53 PM EST [facility] Glucose, Urine Negative Negative mg/dL LAB URINALYSIS - AUTOMATED METHOD 05/26/2025 11:53 PM [facility] Ketones, Urine Negative Negative mg/dL LAB URINALYSIS - AUTOMATED METHOD 05/26/2025 11:53 PM [facility] Urobilinogen, Urine 0.2 0.2 - 1.0 mg/dL LAB URINALYSIS - AUTOMATED METHOD 05/26/2025 11:53 PM [facility] Bilirubin, Urine Negative Negative LAB URINALYSIS - AUTOMATED METHOD 05/26/2025 11:53 PM [facility] Blood, Urine Negative Negative LAB URINALYSIS - AUTOMATED METHOD 05/26/2025 11:53 PM [facility] Urine Urine specimen obtained by clean catch procedure / Unknown Non-blood Collection / Unknown 05/26/2025 11:05 PM EST 05/26/2025 11:12 PM EST us Aaron Esparza MD LAB URINE ORDERABLES Sosa l Result [facility] [address] [place] [address], * (ABNORMAL) CBC auto differential (05/26/2025 9:29 PM EST) WBC 5.3 4.8 - 10.8 K/mcL LAB HEMETOLOGY METHOD 05/26/2025 9:56 PM [facility] RBC 4.10 3.80 - 4.80 M/mcL LAB HEMETOLOGY METHOD 05/26/2025 9:56 PM [facility] Hemoglobin 10.6(L) 11.5 - 16.0 g/dL LAB HEMETOLOGY METHOD 05/26/2025 9:56 PM [facility] Hematocrit 32.8(L) 35.0 - 47.0 % LAB HEMETOLOGY METHOD 05/26/2025 9:56 PM [facility] MCV 80.6 79.0 - 98.0 FL LAB HEMETOLOGY METHOD 05/26/2025 9:56 PM [facility] MCH 26.0(L) 27.0 - 32.0 pcg LAB HEMETOLOGY METHOD 05/26/2025 9:56 PM [facility] MCHC 32.3 32.0 - 37.0 g/dL LAB HEMETOLOGY METHOD 05/26/2025 9:56 PM [facility] RDW 16.8(H) 11.0 - 15.0 % LAB HEMETOLOGY METHOD 05/26/2025 9:56 PM [facility] Platelets 199 130 - 400 K/mcL LAB HEMETOLOGY METHOD 05/26/2025 9:56 PM [facility] MPV 9.7 7.0 - 11.0 FL LAB HEMETOLOGY METHOD 05/26/2025 9:56 PM [facility] NRBC 0.0 <1.0 % LAB HEMETOLOGY METHOD 05/26/2025 9:56 PM [facility] NRBC Absolute 0.00 <0.10 K/mcL LAB HEMETOLOGY METHOD 05/26/2025 9:56 PM [facility] Neutrophils Relative 67.8 % LAB HEMETOLOGY METHOD 05/26/2025 9:56 PM [facility] Lymphocytes Relative 22.2 % LAB HEMETOLOGY METHOD 05/26/2025 9:56 PM [facility] Monocytes Relative 7.3 % LAB HEMETOLOGY METHOD 05/26/2025 9:56 PM [facility] Eosinophils Relative 2.1 % LAB HEMETOLOGY METHOD 05/26/2025 9:56 PM EST [facility] Basophils Relative 0.2 % LAB HEMETOLOGY METHOD 05/26/2025 9:56 PM EST [facility] Immature Granulocytes Relative 0.4 % LAB HEMETOLOGY METHOD 05/26/2025 9:56 PM EST [facility] Neutrophils Absolute 3.61 1.50 - 7.00 K/mcL LAB HEMETOLOGY METHOD 05/26/2025 9:56 PM EST [facility] Lymphocytes Absolute 1.18 1.00 - 5.00 K/mcL LAB HEMETOLOGY METHOD 05/26/2025 9:56 PM EST [facility] Monocytes Absolute 0.39 0.20 - 1.00 K/mcL LAB HEMETOLOGY METHOD 05/26/2025 9:56 PM EST [facility] Eosinophils Absolute 0.11 0.00 - 0.50 K/mcL LAB HEMETOLOGY METHOD 05/26/2025 9:56 PM EST [facility] Basophils Absolute 0.01 0.00 - 0.20 K/mcL LAB HEMETOLOGY METHOD 05/26/2025 9:56 PM EST [facility] Immature Granulocytes Absolute 0.02 0.00 - 0.03 K/mcL LAB HEMETOLOGY METHOD 05/26/2025 9:56 PM EST [facility] Blood Venous blood specimen / Unknown Venipuncture / Unknown 05/26/2025 9:29 PM EST 05/26/2025 9:46 PM EST us Aaron Esparza MD LAB BLOOD ORDERABLES Soas mao Result [facility] [address] [place] [address], * Lipase (05/26/2025 9:29 PM EST) Lipase 43 12 - 53 unit/L 05/26/2025 10:17 PM [facility] Blood Venous blood specimen / Unknown Venipuncture / Unknown 05/26/2025 9:29 PM EST 05/26/2025 9:46 PM EST us Aaron Esparza MD LAB BLOOD ORDERABLES Sosa l Result [facility] [address] [place] [address], * Comprehensive Metabolic Panel (CMP) (05/26/2025 9:29 PM EST) Sodium 139 133 - 145 mmol/L 05/26/2025 10:17 PM [facility] Potassium 4.2 3.5 - 5.5 mmol/L 05/26/2025 10:17 PM [facility] Chloride 101 96 - 110 mmol/L 05/26/2025 10:17 PM [facility] CO2 29 21 - 32 mmol/L 05/26/2025 10:17 PM [facility] Anion Gap 9 3 - 11 05/26/2025 10:17 PM [facility] Glucose 84 70 - 100 mg/dL 05/26/2025 10:17 PM [facility] BUN 19 5 - 25 mg/dL 05/26/2025 10:17 PM [facility] Creatinine 0.86 0.50 - 1.10 mg/dL 05/26/2025 10:17 PM [facility] eGFR 66 >=60 mL/min/1. 73m2 05/26/2025 10:17 PM [facility] Comment:Calculation based on the Chronic Kidney Disease Epidemiology Collaboration (CKD-EPI) equation refit without adjustment for race. BUN/Creatinine Ratio 22.1 05/26/2025 10:17 PM [facility] Calcium 9.2 8.5 - 10.5 mg/dL 05/26/2025 10:17 PM [facility] AST (SGOT) 26 10 - 42 unit/L 05/26/2025 10:17 PM [facility] ALT (SGPT) 12 10 - 60 unit/L 05/26/2025 10:17 PM [facility] Alkaline Phosphatase 80 42 - 121 unit/L 05/26/2025 10:17 PM [facility] Total Protein 7.3 6.0 - 8.0 g/dL 05/26/2025 10:17 PM [facility] Albumin 4.7 3.2 - 5.0 g/dL 05/26/2025 10:17 PM [facility] Total Bilirubin 0.3 0.0 - 1.4 mg/dL 05/26/2025 10:17 PM [facility] Blood Venous blood specimen / Unknown Venipuncture / Unknown 05/26/2025 9:29 PM EST 05/26/2025 9:46 PM EST Aaron Esparza MD LAB BLOOD ORDERABLES Sosa l Result [facility] [address] [place] [address], documented in this encounter Visit Diagnoses Diagnosis Anxiety- Primary Anxiety state, unspecified Other chronic pain documented in this encounter Administered Medications Inactive Administered Medications - up to 3 most recent administrations Medication Order MAR Action Action Date Dose Rate Site clonazePAM (KlonoPIN) tablet 0.5 mg 0.5 mg, oral, Every morning, First dose on 05/27/25 at 0851, Hazardous Medication Intact: - Single pair of ASTM standard [id number] certified gloves - Eye/face protection if vomit or potential to spit up Manipulated: - Double pair of ASTM standard [id number] certified gloves - Eye/face protection if vomit or potential to spit up - Staff at reproductive risk must also wear a hazardous gown - Crushing must be performed in sealed closed pouch - Splitting/cutting should be performed by pharmacy, if possible Given 05/27/2025 8:59 AM EST 0.5 mg gabapentin (NEURONTIN) capsule 300 mg 300 mg, oral, 3 times daily, First dose on 05/27/25 at 0900 Given 05/27/2025 1:58 PM EST 300 mg Given 05/27/2025 8:59 AM EST 300 mg LORazepam (ATIVAN) injection 1 mg 1 mg, intravenous, Once, On 05/26/25 at 2136, For 1 dose, Prior to IV use, lorazepam injection should be DILUTED with an equal volume of compatible solution; Rate of administration should NOT exceed 2 mg/min. Given 05/26/2025 9:44 PM EST 1 mg pantoprazole (PROTONIX) EC tablet 40 mg 40 mg, oral, Every morning before breakfast, First dose on 05/27/25 at 0851, Do not crush, chew, or split. Given 05/27/2025 8:59 AM EST 40 mg sertraline (ZOLOFT) tablet 150 mg 150 mg, oral, Daily, First dose on 05/27/25 at 0900 Given 05/27/2025 8:59 AM EST 150 mg documented in this encounter Historical Medications * This list may reflect changes made after this encounter. clonazePAM (KlonoPIN) 0.5 mg tablet Take 1 tablet (0.5 mg total) by mouth 1 (one) time each day in the morning. 08/16/2020 omeprazole (PriLOSEC) [address] capsule Take 1 capsule (20 mg total) by mouth 1 (one) time each day. added in this encounter Active and Recently Administered Medications Times are shown in EST. Scheduled Medication Order 05/25/2025 05/26/2025 05/27/2025 clonazePAM (KlonoPIN) tablet 0.5 mg 0.5 mg, oral, Every morning, First dose on 05/27/25 at 0851, Hazardous Medication Intact: - Single pair of ASTM standard [id number] certified gloves - Eye/face protection if vomit or potential to spit up Manipulated: - Double pair of ASTM standard [id number] certified gloves - Eye/face protection if vomit or potential to spit up - Staff at reproductive risk must also wear a hazardous gown - Crushing must be performed in sealed closed pouch - Splitting/cutting should be performed by pharmacy, if possible 0859 (Given - Provid er: Meri Ceballos RN) gabapentin (NEURONTIN) capsule 300 mg 300 mg, oral, 3 times daily, First dose on 05/27/25 at 0900 0859 (Given - Provid er: Meri Ceballos RN)1358 (Given - Provider: Meri Ceballos RN) LORazepam (ATIVAN) injection 1 mg (COMPLETED) 1 mg, intravenous, Once, On 05/26/25 at 2136, For 1 dose, Prior to IV use, lorazepam injection should be DILUTED with an equal volume of compatible solution; Rate of administration should NOT exceed 2 mg/min. 2144 (Given - Provider: Rosalie Daniel RN) pantoprazole (PROTONIX) EC tablet 40 mg 40 mg, oral, Every morning before breakfast, First dose on 05/27/25 at 0851, Do not crush, chew, or split. 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
--- NOTE | ~2025-05-28 | XR_ITS ---
EXAMINATION: XR CHEST CLINICAL INFORMATION: fever, weakness COMPARISON: 04/24/2024 TECHNIQUE: 2 views of the chest were obtained. FINDINGS: There are surgical clips in right upper quadrant abdomen. Lungs demonstrate mildly coarse markings, but otherwise clear and unchanged. Heart and mediastinal contours are within normal limits. There is no pneumothorax and no pleural effusion. XR/XR chest 2V IMPRESSION: No acute disease Electronically signed by: Martin Lr MD 05/30/2025 04:41 PM EST
--- NOTE | ~2025-05-28 | CT_ITS ---
EXAMINATION: CT HEAD WITHOUT CONTRAST CLINICAL INFORMATION: Headache, confusion COMPARISON: None available. TECHNIQUE: Contiguous axial imaging was performed from the skull base to vertex without intravenous administration of contrast. This CT examination was performed using dose optimization techniques as appropriate, variously including the following: *Automated exposure control *Adjustment of mA and/or kV according to patient size (this includes techniques or standardized protocols for targeted exams where dose is matched to indication/reason for exam; i.e. extremities or head) *Use of iterative reconstruction technique FINDINGS: There is no acute ischemic change. Periventricular white matter hypodensities are present. There is no intracranial hemorrhage. There is no mass-effect or midline shift. There is mild generalized atrophy. Basal cisterns and ventricles are within normal limits for age/cerebral volume. Orbits are symmetrical and unremarkable. Paranasal sinuses and mastoid air cells are pneumatized. There are no bony abnormalities. CT/CT head/brain wo IV con IMPRESSION: No acute intracranial abnormality. White matter changes likely related to small vessel angiopathy. Electronically signed by: Martin Lr MD 05/28/2025 05:04 PM [email or web address]
--- NOTE | ~2025-05-28 | CT_ITS ---
EXAMINATION: CT ABDOMEN AND PELVIS WITH CONTRAST CLINICAL INFORMATION: Right abdominal pain COMPARISON: February 19, 2024 TECHNIQUE: Multidetector volumetric images were obtained from the superior aspect of the liver through the pubic symphysis following administration 85 mL of Omnipaque 350 intravenous contrast. Sagittal and coronal reformatted images were obtained on the technologist's workstation. Oral contrast: No This CT examination was performed using dose optimization techniques as appropriate, variously including the following: *Automated exposure control *Adjustment of mA and/or kV according to patient size (this includes techniques or standardized protocols for targeted exams where dose is matched to indication/reason for exam; i.e. extremities or head) *Use of iterative reconstruction technique FINDINGS: LUNG BASES: The visualized lung bases are unremarkable. LIVER, GALLBLADDER, AND BILIARY TREE: The liver is normal in size, shape, and attenuation. No focal hepatic lesion or biliary ductal dilatation is present. The gallbladder surgically absent with numerous clips in the gallbladder fossa. PANCREAS: Unremarkable. SPLEEN: The spleen remains enlarged measuring 14 cm inferior ADRENAL GLANDS: Unremarkable. KIDNEYS AND URETERS: The kidneys are normal in size, shape, and attenuation. No hydronephrosis, hydroureter, or calculi seen. No perinephric stranding. BLADDER: Unremarkable. GASTROINTESTINAL TRACT: There is a sliding hiatal hernia involving the stomach fundus and a portion of the stomach body. Again seen is an end to end anastomosis at the rectosigmoid junction. The wall of the partially distended cecum appears mildly thickened. Appendix is not clearly identified. ABDOMINAL WALL: There is a well-healed surgical scar in the epigastric region with dehiscence of the linea alba and herniation of a portion of the greater omentum. No change. LYMPH NODES: Normal. VASCULAR: Moderate atherosclerotic calcifications are present. PELVIC VISCERA: Unremarkable. OSSEOUS STRUCTURES: Moderate to severe degenerative disc disease with vacuum phenomena, disc space narrowing, endplate osteophytes as well as facet sclerosis and osteophytes are present in the thoracal lumbar spine. There is moderate right and mild left osteoporosis in the hip joints CT/CT abdomen pelvis w IV con IMPRESSION: Inferior portion of the cecum appears thick walled which could be due to nondistention. However, other etiologies such as neoplasm, inflammatory bowel disease, infection, and ischemia are in the differential. Rectosigmoid anastomosis and postsurgical changes in the epigastric region with herniation of a portion of the greater omentum. Stable Moderate sliding hiatal hernia, stable. Splenomegaly, chronic Fleischner guidelines were followed. Electronically signed by: Martin Lr MD 05/28/2025 05:14 PM REBEKAH MCDANIELS
[2025-05-28 14:06] VITALS: BP 150/70; PULSE 101; O2SAT 95
[2025-05-28 14:08] VITALS: BP 154/70; PULSE 98; RESP 20; TEMP 37; O2SAT 93; BMI 27.6
--- NOTE | 2025-05-28 14:20 | ECG_ITS ---
Test Reason : DIZZINESS Blood Pressure : */* mmHG Vent. Rate : 95 BPM Atrial Rate : 95 BPM P-R Int : 200 ms QRS Dur : 96 ms QT Int : 388 ms P-R-T Axes : 55 35 36 degrees QTcB Int : 487 ms Normal sinus rhythm Low voltage QRS Borderline ECG When compared with ECG of 19-Feb-2024 17:59, No significant change was found Referred By: Tiera Winn Electronically Signed By: Hemanth Wright
--- NOTE | 2025-05-28 15:09 | ED_ITS ---
HPI - General Adult General Chief complaint: General Medical Stated complaint: emotional distress, dizzy, GI pain, Etc. 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 she says that she has been feeling much worse over the last week with a sense of worsening right-sided abdominal pains, pains in her right leg, headache, and generalized weakness. She has been to both and [facility] over the last 2 weeks. She was at on May 15. She was seen at [facility] yesterday on May 27. She had a CAT scan of her abdomen at the [facility] visit. No imaging studies yesterday. Labs were unremarkable. The patient says she is doing very poorly at home and feels she is having trouble taking care of herself. She says that she has a history of achalasia. Apparently EMS describes her home as a consistent with a holding condition. The patient says that she lives alone in a big house. She says that she does not have any local family members. Related Data Home Medications ?Medication ?Instructions ?Recorded ?Confirmed clonazepam 0.5 mg tablet 0.5 mg PO DAILY 05/28/25 gabapentin 300 mg capsule 600 mg PO TIDWM 05/28/25 omeprazole 20 mg capsule,delayed 20 mg PO QAM 05/28/25 05/28/25 release sertraline 25 mg tablet 25 mg PO QAM 05/28/25 sertraline 50 mg tablet 150 mg PO QAM 05/28/2505/28 Allergies Allergy/AdvReac Type Severity Reaction Status Date / Time amoxicillin (AMOXICILLIN) Allergy Unknown VIRAL Verified 05/28/25 14:21 MENINGITIS Review of Systems 2 Review of Systems: Yes all other systems are reviewed and are negative [facility] Social History Social History Alcohol intake: never Smoked in Last 30 Days: No Use of substances other than those prescribed or required for medical reasons: No Advance Directives: No Advance Directives Information Provided: No Physical Exam ED Vital Signs: Vital Signs - 24 hr 05/29/25 19:58 05/30/25 06:03 05/30/25 14:07 Temperature 98.5 F 97.8 F 99.1 F Pulse Rate 93 90 88 Respiratory Rate 20 16 18 Blood Pressure 101/45 L 116/64 105/56 L Pulse Oximetry 96 98 97 Oxygen Delivery Method Room Air Room Air Room Air 05/30/25 15:40 05/30/25 17:46 Temperature 100.4 F 100.4 F Pulse Rate Respiratory Rate Blood Pressure Pulse Oximetry Oxygen Delivery Method BMI result Body Mass Index 27.6 Const Other: patient is an elderly woman who was awake and alert. She is extremely talkative. She does not appear in obvious distress. HENMT Other: Face is symmetrical. The patient is edentulous. Mucous membranes moist. Eyes Other: Pupils are round equal, conjunctivae are clear, extraocular movements intact Neck Neck: Yes normal visual inspection, Yes full ROM and Yes no JVD Resp Effort & Inspection: normal respiratory effort Auscultation: clear to auscultation bilaterally Cardio Rate: regular rate Rhythm: regular rhythm Heart sounds: S1 normal heart sound present and S2 normal heart sound present GI Other: The patient reported right-sided tenderness with palpation. No rebound or guarding. Back/Spine/Pelvis Other: No marked abnormalities on the back. The patient reported a sense of swelling on the right side of her upper back but I did not appreciate anything unusual. Skin Other: The skin is dry and unremarkable. Neuro Other: The patient is awake and alert. She seems reasonably well oriented. She is extremely verbose. She had to be interrupted often during any conversation. Cranial nerves are intact. She moves her extremities symmetrically. She is able to walk. No focal deficits apparent. Extrem Other: the patient has what I think is some chronic swelling to her right knee. No significant calf swelling or tenderness. No significant calf asymmetry. No pedal edema. Psych Other: The patient was extremely verbose and was a very rambling historian. Course Reevaluation(s) Reevaluation #1: Time: 1350 Date: 05/29/25 Provider: JAMES Cesar Patient in physician observation for case management needs. No acute events reported overnight.? No current issues or complaints. VS stable. I assess patient earlier today as patient was reporting that she was having some dizziness. Upon my evaluation, she is hyperverbal, frequently interrupting my conversation with her, she is neurologically intact. She is ambulatory with steady gait. Orthostatics were performed, patient is not orthostatic.We will continue to monitor pending disposition. 05/30/2025 0913 Tiera Winn PA-C ----> Case management continues to follow. Observation continues. 05/30/2025 1436 Tiera Winn PA-C ----> Observation care revealed the the patient does not meet medical necessity for hospitalization. Patient was evaluated by the physical therapy team who cleared her safe for home from an ADL standpoint. Final disposition back home discussed with the patient. Patient completed observation care at 1436 on 05/30/2025. 05/30/2025 1540 Tiera Winn PA-C ---> Informed by nursing that upon discharge the patient had a fever of 100.4. Patient will have labs + SARS/RSV/Influenza + UA + Chest XR ordered. Patient placed back in observation. 05/30/2025 1800 Tiera Winn PA-C ---> Patient's work up was negative for any infectious process. Patient cleared for discharge. Patient completed observation care at 1800 on 05/30/2025. Medications Administered Generic Name Dose Route Start Last Admin Trade Name Freq PRN Reason Stop Dose Admin Clonazepam 0.5 mg 05/28/25 19:00 05/30/25 08:11 Clonazepam 0.5 Mg Tablet PO 0.5 mg DAILY TAYLER Administration Gabapentin 600 mg 05/29/25 13:00 05/30/25 16:56 Gabapentin 300 Mg Capsule PO 600 mg TIDWM TAYLER Administration Omeprazole 20 mg 05/29/25 06:30 05/30/25 05:20 Omeprazole 20 Mg Capsule.Dr PO 20 mg DAILY@0630 TAYLER Administration Sertraline HCl 150 mg 05/29/25 09:00 05/30/25 08:11 Sertraline Hcl 50 Mg Tablet PO 150 mg DAILY TAYLER Administration Discontinued Medications Generic Name Dose Route Start Last Admin Trade Name Freq PRN Reason Stop Dose Admin Acetaminophen 650 mg 05/30/25 05:17 05/30/25 05:20 Acetaminophen 325 Mg Tablet PO 05/30/25 05:18 650 mg ONCE ONE Administration Acetaminophen 975 mg 05/30/25 15:40 05/30/25 15:50 Acetaminophen 325 Mg Tablet PO 05/30/25 15:41 975 mg ONCE ONE Administration Gabapentin 600 mg 05/28/25 21:00 05/29/25 08:19 Gabapentin 300 Mg Capsule PO 600 mg TID TAYLER Administration Iohexol 100 ml 05/28/25 16:44 05/28/25 16:44 Iohexol 350 Mg/Ml 100 Ml Infus..Btl IV 05/28/25 16:45 85 ml ONCE ONE Administration Sertraline HCl 25 mg 05/29/25 09:00 05/29/25 08:19 Sertraline Hcl 25 Mg Tablet PO 25 mg DAILY TAYLER Administration Medical Decision Making Medical Decision Making [facility] Narrative: The patient is an 84-year-old woman who comes to the hospital by ambulance complaining of multiple complaints including multiple areas of body pains, especially in the right side of her abdomen. She is also complaining of right knee pain. She is also complaining of head pain. The patient has been at the emergency room at [facility] and at [facility] for similar complaints over the last 2 weeks. Clinically the patient seems to be a very rambling verbose historian. I think her demeanor is potentially consistent with a obsessive-compulsive disorder. Apparently paramedics described the state of her house as consistent with a house of a hoarder. the patient's medical evaluation in the emergency department is unremarkable. She has CT scan of the head that shows no acute findings. The CT scan of the pelvis was read as possibly showing some right cecal wall thickening but that this might simply be secondary to nondistention. my suspicion for an acute intra-abdominal process is low. She does not have an elevated white count. Her CRP is normal. She has no ketones in her urine. Overall my impression is that she has several chronic complaints but no acute medical process requiring further evaluation in the emergency room department or hospitalization. I think an evaluation by case management, physical therapy, and behavioral health would be appropriate in his patient. Therefore the patient will be placed in physician observation for these consults and for further evaluation. Lab Data 05/30/25 16:03 05/30/25 16:03 Labs: Lab Results 05/28/25 05/28/25 05/30/25 Range/Units 15:27 15:44 16:03 WBC 4.7 L 4.9 (4.8-10.8) X10*3/uL RBC 3.96 L 4.05 L (4.20-5.50) X10*6/uL Hgb 10.1 L 10.4 L (12.0-16.0) g/dl Hct 32.1 L 33.2 L (37.0-47.0) % MCV 81.1 82.0 (80.0-98.0) fL MCH 25.5 L 25.7 L (27.0-33.0) pg MCHC 31.5 31.3 (31.0-35.0) g/dl RDW 17.0 H 16.7 H (11.0-16.0) % Plt Count 170 194 (160-400) X10*3/uL MPV 9.0 L 8.9 L (9.4-12.3) fL Immature Gran % (Auto) 0.4 0.6 H (0.0-0.4) % Neut % (Auto) 69.3 64.0 (45-73) % Lymph % (Auto) 21.9 25.1 (20-40) % [place] % (Auto) 6.7 7.8 (2-11) % Eos % (Auto) 1.5 2.1 (0-4) % Baso % (Auto) 0.2 0.4 (0-2) % Lymph # (Auto) 1.0 L 1.2 (1.2-4.9) X10*3/uL [place] # (Auto) 0.3 0.4 (0.1-1.2) X10*3/uL Eos # (Auto) 0.1 0.1 (0.0-0.4) X10*3/uL Baso # (Auto) 0.0 0.0 (0.0-0.2) X10*3/uL Abs Immat Gran (auto) 0.02 0.03 (0.00-0.03) X10*3/uL Absolute Neuts (auto) 3.2 3.1 (2.0-8.3) x10*3/uL Absolute Nucleated RBC 0.000 0.000 (0.0-0.012) X10*3/uL Nucleated RBC % (auto) 0.0 0.0 (0.0-0.2) /100WBC PT 12.8 (11.2-13.5) SEC INR 1.0 (0.9-1.1) Sodium 142 140 (135-145) mmol/L Potassium 4.0 4.0 (3.3-5.1) mmol/L Chloride 106 104 (96-108) mmol/L Carbon Dioxide 28 29 (22-29) mmol/L Anion Gap 12 11 L (12-20) BUN 16 22 H (9-16) mg/dL Creatinine 0.78 0.87 (0.5-1.4) mg/dL Estim Creat Clear Calc 43.2 38.8 Estimated GFR > 60 > 60 Random Glucose 90 109 (60-115) mg/dL Calcium 9.4 9.3 (8.4-10.2) mg/dL Magnesium 2.1 (1.6-2.6) mg/dL Total Bilirubin 0.5 0.3 (0.0-1.0) mg/dL Direct Bilirubin 0.2 (0.0-0.5) mg/dL AST 25 21 (5-31) U/L ALT 12 12 (0-31) U/L Alkaline Phosphatase 73 69 (39-117) U/L Troponin I High Sens 3.2 (<3.5-17.0) ng/L C-Reactive Protein < 0.10 (< or = 0.50) mg/dL Total Protein 7.4 7.6 (6.5-8.0) g/dL Albumin 4.7 4.7 (3.5-5.0) g/dL Lipase 25 (8-78) U/L Urine Color Yellow Urine Appearance Cloudy Urine pH 5.5 (5.0-9.0) Ur Specific [place] 1.010 (1.005-1.025) Urine Protein Negative (Neg-Trace) mg/dL Urine Glucose (UA) Negative (Negative) mg/dL Urine Ketones Negative (Negative) mg/dL Urine Blood Negative (Negative) Urine Nitrite Negative (Negative) Ur Leukocyte Esterase Negative (Negative) Urine Opiates Screen Not Detected (Not Detect) Ur Buprenorphine Scrn Not Detected (Not Detect) ng/mL Ur Oxycodone Screen Positive H (Not Detect) ng/mL Urine Methadone Screen Not Detected (Not Detect) ng/mL Urine Fentanyl Screen Not Detected (Not Detect) Ur Barbiturates Screen Not Detected (Not Detect) Ur Phencyclidine Scrn Not Detected (Not Detect) Ur Amphetamines Screen Not Detected (Not Detect) U Benzodiazepines Scrn Not Detected (Not Detect) Urine Cocaine Screen Not Detected (Not Detect) U Marijuana (THC) Screen Not Detected (Not Detect) Influenza Type A (PCR) NEGATIVE NEGATIVE (Negative) Influenza Type B (PCR) NEGATIVE NEGATIVE (Negative) RSV RNA Qual (PCR) NEGATIVE NEGATIVE (Negative) SARS-CoV-2 RNA (RT-PCR) NEGATIVE NEGATIVE (Negative) 05/30/25 Range/Units 17:12 WBC (4.8-10.8) X10*3/uL RBC (4.20-5.50) X10*6/uL Hgb (12.0-16.0) g/dl Hct (37.0-47.0) % MCV (80.0-98.0) fL MCH (27.0-33.0) pg MCHC (31.0-35.0) g/dl RDW (11.0-16.0) % Plt Count (160-400) X10*3/uL MPV (9.4-12.3) fL Immature Gran % (Auto) (0.0-0.4) % Neut % (Auto) (45-73) % Lymph % (Auto) (20-40) % [place] % (Auto) (2-11) % Eos % (Auto) (0-4) % Baso % (Auto) (0-2) % Lymph # (Auto) (1.2-4.9) X10*3/uL [place] # (Auto) (0.1-1.2) X10*3/uL Eos # (Auto) (0.0-0.4) X10*3/uL Baso # (Auto) (0.0-0.2) X10*3/uL Abs Immat Gran (auto) (0.00-0.03) X10*3/uL Absolute Neuts (auto) (2.0-8.3) x10*3/uL Absolute Nucleated RBC (0.0-0.012) X10*3/uL Nucleated RBC % (auto) (0.0-0.2) /100WBC PT (11.2-13.5) SEC INR (0.9-1.1) Sodium (135-145) mmol/L Potassium (3.3-5.1) mmol/L Chloride (96-108) mmol/L Carbon Dioxide (22-29) mmol/L Anion Gap (12-20) BUN (9-16) mg/dL Creatinine (0.5-1.4) mg/dL Estim Creat Clear Calc Estimated GFR Random Glucose (60-115) mg/dL Calcium (8.4-10.2) mg/dL Magnesium (1.6-2.6) mg/dL Total Bilirubin (0.0-1.0) mg/dL Direct Bilirubin (0.0-0.5) mg/dL AST (5-31) U/L ALT (0-31) U/L Alkaline Phosphatase (39-117) U/L Troponin I High Sens (<3.5-17.0) ng/L C-Reactive Protein (< or = 0.50) mg/dL Total Protein (6.5-8.0) g/dL Albumin (3.5-5.0) g/dL Lipase (8-78) U/L Urine Color Yellow Urine Appearance Clear Urine pH 5.5 (5.0-9.0) Ur Specific [place] 1.015 (1.005-1.025) Urine Protein Negative (Neg-Trace) mg/dL Urine Glucose (UA) Negative (Negative) mg/dL Urine Ketones Negative (Negative) mg/dL Urine Blood Negative (Negative) Urine Nitrite Negative (Negative) Ur Leukocyte Esterase Negative (Negative) Urine Opiates Screen (Not Detect) Ur Buprenorphine Scrn (Not Detect) ng/mL Ur Oxycodone Screen (Not Detect) ng/mL Urine Methadone Screen (Not Detect) ng/mL Urine Fentanyl Screen (Not Detect) Ur Barbiturates Screen (Not Detect) Ur Phencyclidine Scrn (Not Detect) Ur Amphetamines Screen (Not Detect) U Benzodiazepines Scrn (Not Detect) Urine Cocaine Screen (Not Detect) U Marijuana (THC) Screen (Not Detect) Influenza Type A (PCR) (Negative) Influenza Type B (PCR) (Negative) RSV RNA Qual (PCR) (Negative) SARS-CoV-2 RNA (RT-PCR) (Negative) Discharge Plan Discharge Clinical Impression: Abdominal pain, Right leg pain Patient Disposition: Home, Self-Care Instructions: Abdominal Pain (ED), Leg Pain (ED) Additional Instructions: Your work up showed no evidence of an EMERGENT cause for your symptoms. IF you are prescribed home medications and/or you are taking over the counter medications at home - it is very important you continue to do so as prescribed / directed unless told otherwise by a healthcare provider. Follow up with your primary care provider. Do your best to stay well hydrated and rest. Return to the emergency department immediately if your symptoms worsen or if you develop any numbness, tingling, dizziness, shortness of breath, difficulty breathing, chest pain, blurry vision, loss of vision, nausea, vomiting, abdominal pain, fever, chills, back pain, or any other complaints. Please see the information below about our Patient Portal. If you are not yet enrolled in the [facility] Patient Portal, you will receive an enrollment email invitation following your visit to any [facility] setting. You may also self-enroll in the Patient Portal by visiting our website: [email or web address] The following information is required to access the Patient Portal: - Your [facility] Medical Record Number - Your personal home email address (must match what is in your electronic medical record, Registration staff can assist with this) - Name - Date of Capabilities of the Patient Portal: - Message some providers - View upcoming appointments - Access your health summary, medical history, and visit history - View current conditions and allergies - View procedure and lab results - View your medications, including guidelines, side effects, and precautions - Complete pre-appointment questionnaires requested by your provider - Ready summary reports of your office visits and procedures To access the Patient Portal Mobile [employer], follow these directions: - Search YouData in the [employer] Store or [employer] Store - Download the [employer] - Search for [facility] - Enter your login/password Prescriptions: No Action clonazepam 0.5 mg tablet 0.5 mg PO DAILY gabapentin 300 mg capsule 600 mg PO TIDWM Patient Comments: patient takes with meals sertraline 25 mg tablet 25 mg PO QAM omeprazole 20 mg capsule,delayed release(DR/EC) 20 mg PO QAM sertraline 50 mg tablet 150 mg PO QAM Print Language: Yi
[2025-05-28 15:32] LABS: Hematocrit 32.1 % (37.0-47.0); Hemoglobin 10.1 g/dl (12.0-16.0); Imm Gran Abs Auto 0.02 X10*3/uL (0.00-0.03); Imm Gran Pct Auto 0.4 % (0.0-0.4); Lymphocytes Absolute Auto 1.0 X10*3/uL (1.2-4.9); MANUAL DIFF FLAG NO; Mean Corpuscular HGB Conc 31.5 g/dl (31.0-35.0); Mean Corpuscular Hemoglobin 25.5 pg (27.0-33.0); Mean Corpuscular Volume 81.1 fL (80.0-98.0); NRBC Abs Auto 0.000 X10*3/uL (0.0-0.012); NRBC Pct Auto 0.0 /100WBC (0.0-0.2); Platelet Count 170 X10*3/uL (160-400); Red Blood Count 3.96 X10*6/uL (4.20-5.50); White Blood Count 4.7 X10*3/uL (4.8-10.8)
[2025-05-28 15:38] LABS: INTERNATIONAL NORM RATIO 1.0 (0.9-1.1); Prothrombin Time 12.8 SEC (11.2-13.5)
[2025-05-28 15:53] LABS: Appearance Urine Cloudy; Glucose Urine UA Negative (Negative); PH 5.5 (5.0-9.0); Specific Gravity - Urine 1.010 (1.005-1.025)
[2025-05-28 15:54] LABS: Alanine Aminotransferase 12 U/L (0-31); Albumin Level 4.7 g/dL (3.5-5.0); Alkaline Phosphatase 73 U/L (39-117); Anion Gap 12 (12-20); Aspartate Amino Transferase 25 U/L (5-31); Blood Urea Nitrogen 16 mg/dL (9-16); Calcium 9.4 mg/dL (8.4-10.2); Carbon Dioxide 28 mmol/L (22-29); Chloride 106 mmol/L (96-108); Creatinine Clr Calc Pharmacy 43.2; Estimated Glomerular Filt Rate > 60; Lipase 25 U/L (8-78); Potassium 4.0 mmol/L (3.3-5.1); Sodium 142 mmol/L (135-145); Total Protein 7.4 g/dL (6.5-8.0)
--- NOTE | 2025-05-28 16:00 | PC.NURSE ---
Dr. Boyce at bedside speaking with patient.
[2025-05-28 16:01] LABS: Troponin-I High Sensitivity 3.2 ng/L (<3.5-17.0)
[2025-05-28 16:04] LABS: Cannabinoid Screen Urine Not Detected (Not Detect)
[2025-05-28 16:11] LABS: Resp Syncy Virus RNA Qual PCR NEGATIVE (Negative); SARS COV2 PCR INHOUSE NEGATIVE (Negative)
[2025-05-28 16:35] VITALS: BP 165/73; PULSE 99; RESP 18; TEMP 36.7; O2SAT 94
[2025-05-28] MEDS: iohexoL 350 MG/ML 100 ML INFUS..BTL IV (16:44)
[2025-05-28 18:00] VITALS: BP 158/72; PULSE 99; RESP 18; TEMP 36.8; O2SAT 93
--- NOTE | 2025-05-28 19:30 | PC.NURSE ---
Patient is anxious, tearful, hyperverbal, talking on the phone with someone reporting that no one is listening to me, I just want to fucking . Dr. Boyce aware of patient statements. Patient med list completed, medicated per provider orders. Patient rambling, repeating same stories again and again. Patient is alert/oriented at this time, but is very anxious. Aware of plan to speak with case management. Given sandwich. Care ongoing by this RN.
--- NOTE | 2025-05-28 20:58 | PC.NURSE ---
Sania Emerson (case management) at bedside speaking with the patient.
--- NOTE | 2025-05-28 21:22 | PC.NURSE ---
Patient away to bathroom, have been bringing stretcher into bathroom, then assisting to toilet. Uses a cane at baseline. Plan for PT evaluation in the morning. Care ongoing by this RN.
--- OUTSIDE RECORDS SUMMARY | 2025-05-28 21:47 | XMS_ITS | Encounter Summary ---
Author Organization [facility] Address [address] [place] [address] Phone Care Team Providers Care Supervisor [place] Name Role Phone Jemima Ross MD Unavailable [phone] Estefani Palencia MD Unavailable Steph Mcneil MD Unavailable Brat Harding DO Primary Care Provide r Julius Mccoy MD Unavailable Jeremy Fierro MD Unavailable Ni Case NP Unavailable Encounter Details Date Type Department Care Team (Late st Contact Info) Description 08/21/2022 Procedure Pass [facility], Ct Scan - [facility] [address] [place] [address] Social History Tobacco Use Types Packs/Day Years Used Date Smoking Tobacco: Former Cigarettes Smokeless Tobacco: Never Comments:Quit smokin05/26 Comments Unknown Sex and Gender Information Value Date Recorded Sex Assigned at Female 11/27/2024 10:09 AM EDT Legal Sex Female 7:16 PM EST Gender Identity Female 11/27/2024 10:09 AM EDT Sexual Orientation Straight 11/27/2024 10 :09 AM EDT documented as of this encounter Plan of Treatment Not on file documented as of this encounter Visit Diagnoses Not on filedocumented in this encounter Care Teams Supervisor [place] Relationship Specialty Start Date End Date Bart Harding DO [address] [place] [address] [address] [place] [address] PCP - General Internal Medicine 01/25/20 Jemima Ross MD [email or web address] Gastroenterology 03/30/16 Estefani Palencia MD [address] [place] [id number] [email or web address] 03/30/16 Steph Mcneil MD [address] [place] [email or web address] Neurology 03/30/16 Julius Mccoy MD [address] [place] [address] Drive [address]_[place] [address] General Surgery 01/25/20 Jeremy Fierro MD [address] [place] [id number] Gastroenterology 01/25/20 Ni Case NP [address] [place] [address] [address] [place] [address] Psychiatry 08/18/20 documented as of this encounter Additional Source Comments The information contained in this document represents components of the legal health record. It is not the complete legal health record.[facility]
--- OUTSIDE RECORDS SUMMARY | 2025-05-28 21:47 | XMS_ITS | Encounter Summary ---
Author Organization [facility] Address [address] [facility] [address] [place] [address] Phone Care Team Providers Care Cuffer Name Role Phone Jemima Ross MD Unavailable [phone] Estefani Palencia MD Unavailable Steph Mcneil MD Unavailable Bart Harding DO Primary Care Provide r Julius Mccoy MD Unavailable Jeremy iFerro MD Unavailable [phone] Ni Case NP Unavailable [phone] Encounter Details Date Type Department Care Team (Latest Contact Info) Description 06/24/2023 Transcribe Orders [facility]le[facility] [address] 2nd [place] [address] Adelso Santana MD [address] [address] Abdominal pain, epigastric (Primary Dx); Melena; Outlet dysfunction constipation; Hiatal hernia Social History Tobacco Use Types Packs/Day Years [...] with a working camera? Not on file Comments Unknown Sex and Gender Information Value Date Recorded Sex Assigned at Female 11/27/2024 10:09 AM EDT Legal Sex Female 7:16 PM EST Gender Identity Female 11/27/2024 10:09 AM EDT Sexual Orientation Straight 11/27/2024 10 :09 AM EDT documented as of this encounter Plan of Treatment Not on file documented as of this encounter Results * Vitamin B12 (06/24/2023 12:15 PM EST) VITAMIN B12 561 232 - 1,245 pg/mL [facility] Blood 06/24/2023 12:1 5 PM EST 06/24/2023 12:20 PM EST us Adelso Santana MD LAB BLOOD BKR ORDERABLES Fin al Result Performing Organization Address City/[facility]/ZIP Co de Phone Number [address] [address] * Ferritin (06/24/2023 12:15 PM EST) FERRITIN 22 13 - 150 ug/L [facility] Blood 06/24/2023 12:1 5 PM EST 06/24/2023 12:20 PM EST us Adelso Santana MD LAB BLOOD BKR ORDERABLES Fin al Result Performing Organization Address City/[facility]/ZIP Co de Phone Number [address] [address] * (ABNORMAL) Iron and iron binding capacity (06/24/2023 12:15 PM EST) IRON 50 30 - 160 ug/dL [facility] IRON BINDING CAPACITY 472(H) 228 - 428 ug/dL [facility] TRANSFERRIN SATURAT. 11(L) 15 - 50 % [facility] Blood 06/24/2023 12:1 5 PM EST 06/24/2023 12:20 PM EST us Adelso Santana MD LAB BLOOD BKR ORDERABLES Fin al Result Performing Organization Address City/[facility]/ZIP Co de Phone Number [address] [address] * C-Reactive Protein (06/24/2023 12:15 PM EST) [facility] C REACTIVE PROTEIN <3.0 0.0 - 4.0 mg/L [facility] Blood 06/24/2023 12:1 5 PM EST 06/24/2023 12:20 PM EST us Adelso Santana MD LAB BLOOD BKR ORDERABLES Fin al Result Performing Organization Address [facility] Co de Phone Number [address] [address] * Comprehensive metabolic panel (06/24/2023 12:15 PM EST) [facility] SODIUM 140 133 - 146 mmol/L [facility] POTASSIUM 4.7 3.3 - 5.1 mmol/L [facility] CHLORIDE 103 96 - 108 mmol/L [facility] CO2 26 21 - 35 mmol/L [facility] BUN 18 6 - 19 mg/dL [facility] CREATININE 0.90 0.5 - 1.5 mg/dL [facility] GLUCOSE 94 70 - 99 mg/dL [facility] ALBUMIN 4.6 3.9 - 4.8 g/dL [facility] TOTAL PROTEIN 7.4 6.5 - 8.0 g/dL [facility] CALCIUM 9.5 8.4 - 10.3 mg/dL [facility] ALKALINE PHOSPHATASE 74 39 - 117 U/L [facility] TOTAL BILIRUBIN 0.4 0.0 - 1.2 mg/dL [facility] AST 24 0 - 37 U/L [facility] ALT 11 0 - 40 U/L [facility] GLOBULIN 2.8 1 - 4.8 g/dL [facility] EGFR 63 >59 mL/min/1.7 3m2 [facility] Comment:Estimated glomerular filtration rate calculated using the CKD-EPI refit equation. ANION GAP 16 10 - 20 mmol/L [facility] Blood 06/24/2023 12:1 5 PM EST 06/24/2023 12:20 PM EST us Adelso Santana MD LAB BLOOD BKR ORDERABLES Fin al Result Performing Organization Address [facility]/ZIP Co de Phone Number [address] [address] * (ABNORMAL) CBC (06/24/2023 12:15 PM EST) WBC 5.26 4.00 - 11.00 K/uL [facility] RBC 4.21 3.72 - 5.30 M/uL [facility] HGB 11.0(L) 11.4 - 15.9 g/dL [facility] HCT 35.8 34.2 - 46.8 % [facility] PLT 234 140 - 430 K/uL [facility] MCV 85.0 78.0 - 97.0 fL [facility] MCH 26.1 25.0 - 33.0 pg [facility] MCHC 30.7(L) 32.0 - 36.0 g/dL [facility] RDW 16.1(H) 11.0 - 16.0 % [facility] MPV 9.6 8.4 - 12.8 fl [facility] Blood 06/24/2023 12:1 5 PM EST 06/24/2023 12:20 PM EST us Adelso Santana MD LAB BLOOD BKR ORDERABLES Fin al Result Performing Organization Address City/[facility]/ZIP Co de Phone Number [address] [address] documented in this encounter Visit Diagnoses Diagnosis Abdominal pain, epigastric- Primary Melena Blood in stool Outlet dysfunction constipation Hiatal hernia Diaphragmatic hernia without mention of obstruction or gangrene documented in this encounter Care Teams Cuffer Relationship Specialty Start Date End Date Bart Harding DO [address] [place] [address] [address] [place] [address] PCP - General Internal Medicine 01/25/20 Jemima Ross MD [email or web address] Gastroenterology 03/30/16 Estefani Palencia MD [address] [place] [address] 4 [place] [address] [email or web address] Gastroenterology 03/30/16 Steph Mcneil MD [address] [place] [address] [email or web address] Neurology 03/30/16 Julius Mccoy MD [address] [place] [address] Drive [address] [address] General Surgery 01/25/20 Jeremy Fierro MD [address] [place] [address] Gastroenterology 01/25/20 Ni Case NP [address] [place] [address] 27 [place] [address] Psychiatry 08/18/20 documented as of this encounter Additional Source Comments The information contained in this document represents components of the legal health record. It is not the complete legal health record.[facility]
--- OUTSIDE RECORDS SUMMARY | 2025-05-28 21:47 | XMS_ITS | Encounter Summary ---
Author Organization [facility] Address [address] [facility] [address] [place] [address] Phone Care Team Providers Care Patient Insurance Clerk Name Role Phone Jemima Ross MD Unavailable [phone] Estefani Palencia MD Unavailable Steph Mcneil MD Unavailable Bart Harding DO Primary Care Provide r Julius Mccoy MD Unavailable Jeremy Fierro MD Unavailable Ni Case NP Unavailable [phone] Reason for Referral * MRI/CAT Scan - Closed Specialty Diagnoses / Procedures Referred By Contbree t Referred To Contact Radiology Diagnoses Right sided abdominal pain Procedures MRI Cholangiopancreatography (MRCP) Krystina Delcid CNP Phone: tel: fax: [email or web address]:[email or web address] Referral ID Status Reason Start Date Expiration Date Visits Re quested Visits Authorized [id number] Closed 07/14/2024 07/14/2025 1 1 Encounter Details Date Type Department Care Team (Latest Contact Info) Description 07/14/2024 Transcribe Orders Virtual Department 30 [place] [address] Krystina Delcid CNP 10 [place] [address] [email or web address] Right sided abdominal pain (Primary Dx) Social History Tobacco Use Types Packs/Day Years [...] as food, clothing, or medical care? No 04/13/2024 In the past 12 months have y ou been in a relationship with a person who hurts, threatens, or tries to control you? No 04/13/2024 Are you denied basic needs s uch as food, clothing, or medical care? No 04/13/2024 In the past 12 months have y ou been in a relationship with a person who hurts, threatens, or tries to control you? No 04/13/2024 Comments Unknown Sex and Gender Information Value Date Recorded Sex Assigned at Female 11/27/2024 10:09 AM EDT Legal Sex Female 7:16 PM EST Gender Identity Female 11/27/2024 10:09 AM EDT Sexual Orientation Straight 11/27/2024 10 :09 AM EDT documented as of this encounter Plan of Treatment Not on file documented as of this encounter Results * MRI CHOLANGIOPANCREATOGRAPHY (MRCP) WITH AND WITHOUT CONTRAST (08/12/2024 5:47 PM EST) Anatomical Region Laterality Modality Pancreas, Biliary Magnetic Reson ance 08/15/2024 11:2 6 AM EST Impressions 08/15/2024 11:34 AM EST 1. Status post cholecystectomy. No acute hepatobiliary abnormality. 2. Moderate sized hiatal hernia. 3. Spleen size is near the upper limit of normal, increased from August 2022. Narrative 08/15/2024 11:34 AM EST MRI CHOLANGIOPANCREATOGRAPHY (MRCP) WITH AND WITHOUT CONTRAST INDICATION: Right-sided abdominal pain. TECHNIQUE: Multiplanar MR imaging of the abdomen was performed using T1, T2, fat saturated, and diffusion weighted techniques. 2D and 3D MRCP sequences were performed. Dynamic multiphase imaging was also performed after administration of an intravenous gadolinium contrast agent. COMPARISON: CT from April 13, 2024. CT from August 2022. FINDINGS: Lower Chest: No pleural effusion. No pericardial effusion. Liver: Normal parenchymal signal. No focal abnormality. Biliary: Cholecystectomy. Nondilated bile ducts. No choledocholithiasis. Spleen: Spleen measures 13.9 cm, increased from 2022. Normal enhancement. Pancreas: Normal. Adrenal Glands: Normal. Kidneys/Ureters: Normal. Bowel: Moderate sized hiatal hernia. Peritoneum/Retroperitoneum: No free fluid. Lymph Nodes: No adenopathy. Vessels: No AAA. Bones/Soft Tissues: No acute abnormality. No suspicious lesion. Degenerative findings in the spine. Procedure Note Adelso Chan MD - 08/15/2024 MRI CHOLANGIOPANCREATOGRAPHY (MRCP) WITH AND WITHOUT CONTRAST INDICATION: Right-sided abdominal pain. TECHNIQUE: Multiplanar MR imaging of the abdomen was performed using T1,T2, fat saturated, and diffusion weighted techniques. 2D and 3D MRCPsequences were performed. Dynamic multiphase imaging was also performedafter administration of an intravenous gadolinium contrast agent. COMPARISON: CT from April 13, 2024. CT from August 2022. FINDINGS: Lower Chest: No pleural effusion. No pericardial effusion. Liver: Normal parenchymal signal. No focal abnormality. Biliary: Cholecystectomy. Nondilated bile ducts. No choledocholithiasis. Spleen: Spleen measures 13.9 cm, increased from 2022. Normalenhancement. Pancreas: Normal. Adrenal Glands: Normal. Kidneys/Ureters: Normal. Bowel: Moderate sized hiatal hernia. Peritoneum/Retroperitoneum: No free fluid. Lymph Nodes: No adenopathy. Vessels: No AAA. Bones/Soft Tissues: No acute abnormality. No suspicious lesion.Degenerative findings in the spine. IMPRESSION: 1. Status post cholecystectomy. No acute hepatobiliary abnormality. 2. Moderate sized hiatal hernia. 3. Spleen size is near the upper limit of normal, increased from August2022. us Krystina Mason Bhavin PILOT STEAM YACHT IMG MR ABDOMEN Final Resu lt documented in this encounter Visit Diagnoses Diagnosis Right sided abdominal pain- Primary Abdominal pain, unspecified site Right sided abdominal pain Abdominal pain, unspecified site documented in this encounter Care Teams Patient Insurance Clerk Relationship Specialty Start Date End Date MehdiBart DO [address] [facility] 1 [place] [address] PCP - General Internal Medicine 01/25/20 Jemima Ross MD [email or web address] Gastroenterology 03/30/16 Estefani Palencia MD [address] [place] [address] [email or web address] Gastroenterology 03/30/16 Steph Mcneil MD [address] [place] [address] [email or web address] Neurology 03/30/16 Julius Mccoy MD [address] [place] [address] Drive [address]_[place] [address] General Surgery 01/25/20 Jeremy Fierro MD [address] [place] [address] Gastroenterology 01/25/20 Ni Case NP [address] [place] [address] Psychiatry 08/18/20 documented as of this encounter Additional Source Comments The information contained in this document represents components of the legal health record. It is not the complete legal health record.[facility]
--- OUTSIDE RECORDS SUMMARY | 2025-05-28 21:47 | XMS_ITS | Encounter Summary ---
Author Organization [facility] Address [address] [facility] [address] [place] [address] Phone Care Team Providers Care Wad Blanking Press Adjuster Name Role Phone Jemima Ross MD Unavailable [phone] Estefani Palencia MD Unavailable Steph Mcneil MD Unavailable Bart Harding DO Primary Care Provide r Julius Mccoy MD Unavailable [phone] Jeremy Fierro MD Unavailable [phone] Ni Case NP Unavailable Encounter Details Date Type Department Care Team (Late st Contact Info) Description 04/14/2024 Procedure Pass [facility] Emergency Radiology, Main [address], Floor 1 [place] [address] Social History Tobacco Use Types Packs/Day Years [...] on filedocumented in this encounter Care Teams Wad Blanking Press Adjuster Relationship Specialty Start Date End Date Bart Harding DO [address] [address] PCP - General Internal Medicine 01/25/20 Jemima Ross MD [email or web address] Gastroenterology 03/30/16 Estefani Palencia MD [address] [address] [email or web address] Gastroenterology 03/30/16 Steph Mcneil MD [address] [place] [address] [email or web address] Neurology 03/30/16 Julius Mccoy MD [address] [place] [address] [address]_[place] [address] General Surgery 01/25/20 Jeremy Fierro MD [address] [place] [address] Gastroenterology 01/25/20 Ni Case NP [address] [place] [address] Psychiatry 08/18/20 documented as of this encounter Additional Source Comments The information contained in this document represents components of the legal health record. It is not the complete legal health record.[facility]
--- OUTSIDE RECORDS SUMMARY | 2025-05-28 21:47 | XMS_ITS | Encounter Summary ---
Author Organization [facility] Address [address] [facility] [address] [place] [address] Phone Care Team Providers Care Resistor Inspector Name Role Phone Jemima Ross MD Unavailable [phone] Estefani Palencia MD Unavailable Steph Mcneil MD Unavailable Bart Harding DO Primary Care Provide r Julius Mccoy MD Unavailable Jeremy Fierro MD Unavailable [phone] Ni Case NP Unavailable Encounter Details Date Type Department Care Team (Latest Contact Info) Description 04/02/2023 Transcribe Orders [facility] Phleb [facility] [address] 2nd [place] [address] Faiza Yun MD [address] [place] [id number] [email or web address] Olg[place]anell (Primary Dx); Incontinence of feces, unspecified fecal incontinence type Social History Tobacco Use Types Packs/Day Years [...] documented as of this encounter Results * (ABNORMAL) CBC (04/02/2023 11:36 AM EDT) WBC 5.24 4.00 - 11.00 K/uL [facility] RBC 4.19 3.72 - 5.30 M/uL [facility] HGB 11.3(L) 11.4 - 15.9 g/dL [facility] HCT 35.6 34.2 - 46.8 % [facility] PLT 219 140 - 430 K/uL [facility] MCV 85.0 78.0 - 97.0 fL [facility] MCH 27.0 25.0 - 33.0 pg [facility] MCHC 31.7(L) 32.0 - 36.0 g/dL [facility] RDW 16.0 11.0 - 16.0 % [facility] MPV 10.0 8.4 - 12.8 fl [facility] Blood 04/02/2023 11:3 6 AM EDT 04/02/2023 11:40 AM EDT us Faiza Yun MD LAB BLOOD BKR ORDERABLES Fi nal Result [facility] 30 [place] [address] documented in this encounter Visit Diagnoses Diagnosis Melena- Primary Blood in stool Incontinence of feces, unspecified fecal incontinence type documented in this encounter Care Teams Resistor Inspector Relationship Specialty Start Date End Date Bart Harding DO [address] [place] [address] 1 [place] [address] PCP - General Internal Medicine 01/25/20 Jemima Ross MD [email or web address] Gastroenterology 03/30/16 Estefani Palencia MD [address] [place] [address] [email or web address] Gastroenterology 03/30/16 Steph Mcenil MD [address] [place] [address] [email or web address] Neurology 03/30/16 Julius Mccoy MD [address] [place] [address] Drive [address]_General [place] [address] General Surgery 01/25/20 Jeremy Fierro MD [address] [place] [address] Gastroenterology 01/25/20 Ni Case NP [address] [place] [address] 27 [place] [address] Psychiatry 08/18/20 documented as of this encounter Additional Source Comments The information contained in this document represents components of the legal health record. It is not the complete legal health record.[facility]
--- OUTSIDE RECORDS SUMMARY | 2025-05-28 21:47 | XMS_ITS | Encounter Summary ---
Author Organization [facility] Address [address] [facility] [address] [place] [address] Phone Care Team Providers Care Salesperson Automobiles Name Role Phone Jemima Ross MD Unavailable [phone] Estefani Palencia MD Unavailable [phone] Steph Mcneil MD Unavailable [phone] Bart Harding DO Primary Care Provide r Julius Mccoy MD Unavailable Jeremy Fierro MD Unavailable Ni Case NP Unavailable Encounter Details Date Type Department Care Team (Late st Contact Info) Description 07/14/2024 Procedure Pass [facility], [address] [address] Social History Tobacco Use Types Packs/Day Years [...] tries to control you? No 04/13/2024 Comments No Sex and Gender Information Value [...] on filedocumented in this encounter Care Teams Salesperson Automobiles Relationship Specialty Start Date End Date Bart Harding DO [address] [address] PCP - General Internal Medicine 01/25/20 Jemima Ross MD [email or web address] Gastroenterology 03/30/16 Estefani Palencia MD [address] [address] [email or web address] [email or web address] 03/30/16 Steph Mcneil MD [address] [place] [address] [email or web address] Neurology 03/30/16 Julius Mccoy MD [address] [place] [address] Drive [address]_[place] [address] General Surgery 01/25/20 Jeremy Fierro MD [address] [place] [address] Gastroenterology 01/25/20 Ni Case NP [address] [place] [address] Psychiatry 08/18/20 documented as of this encounter Additional Source Comments The information contained in this document represents components of the legal health record. It is not the complete legal health record.[facility]
--- OUTSIDE RECORDS SUMMARY | 2025-05-28 21:47 | XMS_ITS | Encounter Summary ---
Author Organization [facility] Address [address] [place] [address] Phone Care Team Providers Care Saw Feeder Name Role Phone Jemima Ross MD Unavailable [phone] Estefani Palencia MD Unavailable Steph Mcneil MD Unavailable Bart Harding DO Primary Care Provide r Julius Mccoy MD Unavailable Jeremy Fierro MD Unavailable Ni Case NP Unavailable Encounter Details Date Type Department Care Team (Late st Contact Info) Description 04/13/2024 Procedure Pass [facility] [place], [place] [address] [facility], 2nd Floor, [address] [place] [address] Social History Tobacco Use Types Packs/Day Years [...] Date of Assessment Author No Risk Indicated 04/13/2024 8:25 PM EDT Yevgeniy Solano RN * [place] Suicide Severity Rating Scale (Screener/Recent Self-Report) Question Answer Date of Assessment Author 1. Wish to be (Past 1 Month) No 04/13/2024 8:25 PM EDT Sterling Cain RN 2. Non-Specific Active Suicidal Thoughts (Past 1 Month) No 04/13/2024 8:25 PM EDT Sterling Cain RN 6. Suicidal Behavior (Lifetime) No 04/13/2024 8:25 PM EDT Sterling Cain RN documented as of this encounter Plan of Treatment Not on file documented as of this encounter Visit Diagnoses Not on filedocumented in this encounter Care Teams Saw Feeder Relationship Specialty Start Date End Date Bart Harding DO [address] [phone] PCP - General Internal Medicine 01/25/20 Jemima Ross MD [email or web address] Gastroenterology 03/30/16 Estefani aPlencia MD [address] [place] [address] [email or web address] [email or web address] 03/30/16 Steph Mcneil MD [address] [place] [address] [email or web address] Neurology 03/30/16 Julius Mccoy MD [address] [place] [address] Drive [address]_[place] [address] General Surgery 01/25/20 Jeremy Fierro MD [address] [place] [address] Gastroenterology 01/25/20 Ni Case NP [address] [place] [address] 27 [place] [address] Psychiatry 08/18/20 documented as of this encounter Additional Source Comments The information contained in this document represents components of the legal health record. It is not the complete legal health record.[facility]
--- OUTSIDE RECORDS SUMMARY | 2025-05-28 21:48 | XMS_ITS | Encounter Summary ---
Author Organization [facility] Address [address] [facility] [address] [place] [address] Phone Care Team Providers Care Commercial Retoucher Name Role Phone Jemima Ross MD Unavailable [phone] Estefani Palencia MD Unavailable Steph Mcneil MD Unavailable Bart Harding DO Primary Care Provide r Julius Mccoy MD Unavailable [phone] Jeremy Fierro MD Unavailable Ni Case NP Unavailable Encounter Details Date Type Department Care Team (Late st Contact Info) Description 11/27/2024 Procedure Pass [facility], Ct Scan - [facility] 30 [place] [address] Social History Tobacco Use Types Packs/Day Years [...] Risk Indicated 11/27/2024 10:09 AM EDT Jessica Wilson RN * [place] Suicide Severity Rating Scale (Screener/Recent Self-Report) Question Answer Date of Assessment Author 1. Wish to be (Past 1 Month) No 025 10:09 AM EDT Jessica Scanlon RN 2. Non-Specific Active Suici korina Thoughts (Past 1 Month) No 11/27/2024 10:09 AM EDT Ayaka Scanlon RN 6. Suicidal Behavior (Lifetime) No 5 10:09 AM EDT Jessica Scanlon RN documented as of this encounter Plan of Treatment Not on file documented as of this encounter Visit Diagnoses Not on filedocumented in this encounter Care Teams Commercial Retoucher Relationship Specialty Start Date End Date Bart Harding DO 75 [facility] 1 [place] [address] PCP - General Internal Medicine 01/25/20 Jemima Ross MD [email or web address] Gastroenterology 03/30/16 Estefani Palencia MD 55 [facility] 4 [place] [address] [email or web address] Gastroenterology 03/30/16 Steph Mcneil MD 300 [facility] [address] [place] [address] [email or web address] Neurology 03/30/16 Julius Mccoy MD [address] [place] [address] [address]_[place] [address] General Surgery 01/25/20 Jeremy Fierro MD [address] [place] [address] Gastroenterology 01/25/20 Ni Case NP 10 [facility] 27 [place] [address] Psychiatry 08/18/20 documented as of this encounter Additional Source Comments The information contained in this document represents components of the legal health record. It is not the complete legal health record.[facility]
--- OUTSIDE RECORDS SUMMARY | 2025-05-28 21:48 | XMS_ITS | Encounter Summary ---
Author Organization [facility] Address [address] [facility] [address] [place] [address] Phone Care Team Providers Care Reeler Operator Name Role Phone Jemima Ross MD Unavailable [phone] Estefani Palencia MD Unavailable [phone] Steph Mcneil MD Unavailable Bart Harding DO Primary Care Provide r Julius Mccoy MD Unavailable [phone] Jeremy Fierro MD Unavailable Ni Case NP Unavailable Encounter Details Date Type Department Care Team (Late st Contact Info) Description 08/21/2022 Procedure Pass [facility] Endoscopy Admitting Dept Virtual Department [address] [place] [address] Social History Tobacco Use Types Packs/Day Years [...] on filedocumented in this encounter Care Teams Reeler Operator Relationship Specialty Start Date End Date Bart Harding DO [address] [place] [address] 1 [place] [address] PCP - General Internal Medicine 01/25/20 Jemima Ross MD [email or web address] Gastroenterology 03/30/16 Estefani Palencia MD [address] [place] [id number] [email or web address] 03/30/16 Steph Mcneil MD [address] [place] [id number] [email or web address] Neurology 03/30/16 Julius Mccoy MD [address] [place] [address] Drive [address]_[place] [address] General Surgery 01/25/20 Jeremy Fierro MD [address] [place] [address] Gastroenterology 01/25/20 Ni Case NP [address] [place] [address] 27 [place] [address] Psychiatry 08/18/20 documented as of this encounter Additional Source Comments The information contained in this document represents components of the legal health record. It is not the complete legal health record.[facility]
--- OUTSIDE RECORDS SUMMARY | 2025-05-28 21:48 | XMS_ITS | Encounter Summary ---
Author Organization [facility] Address [address] [facility] [address] [place] [address] Phone Care Team Providers Care Computer Operations Analyst Name Role Phone Jemima Ross MD Unavailable [phone] Estefani Palencia MD Unavailable Steph Mcneil MD Unavailable Bart Harding DO Primary Care Provide r Julius Mccoy MD Unavailable Jeremy Fierro MD Unavailable [phone] Ni Case NP Unavailable Reason for Referral * Outpatient Procedure - Closed Specialty Diagnoses / Procedures Referred By Contbree t Referred To Contact Radiology Diagnoses Carotid stenosis, left Procedures US Carotid Duplex Complete (Bilateral) Nik Sanchez MD [address] [place] [address], [address] [place] [address] Phone: tel: fax: [email or web address] Referral ID Status Reason Start Date Expiration Date Visits Re quested Visits Authorized [id number] Closed 01/16/2025 01/16/2026 1 1 Encounter Details Date Type Department Care Team (Latest Contact Info) Description 01/16/2025 Transcribe Orders Virtual Department [address] [place] [phone] Nik Sanchez MD [address] [place] [address], [address] [place], [place] [id number] [email or web address] Carotid stenosis, left (Primary Dx) Social History Tobacco Use Types [...] documented as of this encounter Results * US Carotid Duplex Complete (Bilateral) (01/18/2025 12:32 PM EDT) Anatomical Region Laterality Modality Heart, Thoracic Vasculature, Neck Ultrasound 01/18/2025 3:38 PM EDT Narrative 01/19/2025 9:32 AM EDT US CAROTID DUPLEX COMPLETE (BILATERAL) Referring clinician's provided indication for this examination in [facility]: Outside Radiology Order; mild to moderate stenosis on cervical left ICA TECHNIQUE: A duplex ultrasound evaluation of the common carotid, internal carotid, external carotid, vertebral, and subclavian arteries was performed using arango scale, color duplex and spectral Doppler analysis. COMPARISON: No relevant previous examination. FINDINGS: Exam Quality: Technically adequate exam demonstrates: RIGHT Common Carotid Artery (cm/s): Proximal Systolic: 65 Proximal Diastolic: 16 Mid Systolic: 66 Mid Diastolic: 19 Distal Systolic: 68 Distal Diastolic: 18 Internal Carotid Artery (cm/s): Proximal Systolic: 71 Proximal Diastolic: 15 Mid Systolic: 82 Mid Diastolic: 22 Distal Systolic: 80 Distal Diastolic: 28 External Carotid Artery (cm/s): Systolic: 85 Diastolic: 8 Vertebral Artery (cm/s): Systolic: 28 Diastolic: 10 Subclavian Artery (cm/s): Systolic: 50 Diastolic: 0 ICA/CCA Ratio: 1.2 ICA Stenosis: Less than 50% ICA Plaque: Heterogeneous LEFT Common Carotid Artery (cm/s): Proximal Systolic: 73 Proximal Diastolic: 16 Mid Systolic: 76 Mid Diastolic: 16 Distal Systolic: 61 Distal Diastolic: 15 Internal Carotid Artery (cm/s): Proximal Systolic: 56 Proximal Diastolic: 11 Mid Systolic: 73 Mid Diastolic: 26 Distal Systolic: Not Done. External Carotid Artery (cm/s): Systolic: 70 Diastolic: 8 Vertebral Artery (cm/s): Systolic: 64 Diastolic: 17 Subclavian Artery(cm/s): Systolic: 154 Diastolic: 0 ICA/CCA Ratio: 1.2 ICA Stenosis: Less than 50% ICA Plaque: Heterogeneous Abbreviations: CCA = Common Carotid Artery. ICA = Internal Carotid Artery. ECA = External Carotid Artery. Vert = Vertebral Artery. ICA/CCA Ratio = maximal ICA PSV divided by the distal CCA PSV. DIRECT TEST FINDINGS: Right: Doppler flow velocities and waveform contours demonstrate no hemodynamically significant elevation throughout the internal carotid artery. No plaque is visualized in the common carotid artery. Unremarkable external carotid artery. Anterograde flow is noted in the vertebral artery. The subclavian artery is patent. Left: Doppler flow velocities and waveform contours demonstrate no hemodynamically significant elevation throughout the internal carotid artery. No plaque is visualized in the common carotid artery. Unremarkable external carotid artery. Anterograde flow is noted in the vertebral artery. The subclavian artery is patent. IMPRESSIONS: 1. <50% stenosis noted in the right internal carotid artery. 2. <50% stenosis noted in the left internal carotid artery. 3. No stenosis is noted in the common carotid arteries bilaterally. 4. Unremarkable external carotid arteries bilaterally. 5. Antegrade flow in the bilateral cervical vertebral arteries. 6. Normal examination of the bilateral subclavian arteries. STENOSIS: Internal carotid artery stenosis by duplex ultrasonography has been validated by comparing findings with angiographic stenosis. NASCET methods were used, where the most severe stenosis represents the numerator, and the normal internal carotid artery diameter distal to the stenosis where the gómez are parallel represents the denominator. Procedure Note Casey Grant MD - 01/19/2025 US CAROTID DUPLEX COMPLETE (BILATERAL) Referring clinician's provided indication for this examination in Epic:Outside Radiology Order; mild to moderate stenosis on cervical left ICA TECHNIQUE: A duplex ultrasound evaluation of the common carotid, internalcarotid, external carotid, vertebral, and subclavian arteries wasperformed using arango scale, color duplex and spectral Doppler analysis. COMPARISON: No relevant previous examination. FINDINGS: Exam Quality: Technically adequate exam demonstrates: RIGHT Common Carotid Artery (cm/s): Proximal Systolic: 65 Proximal Diastolic: 16 Mid Systolic: 66 Mid Diastolic: 19 Distal Systolic: 68 Distal Diastolic: 18 Internal Carotid Artery (cm/s): Proximal Systolic: 71 Proximal Diastolic: 15 Mid Systolic: 82 Mid Diastolic: 22 Distal Systolic: 80 Distal Diastolic: 28 External Carotid Artery (cm/s): Systolic: 85 Diastolic: 8 Vertebral Artery (cm/s): Systolic: 28 Diastolic: 10 Subclavian Artery (cm/s): Systolic: 50 Diastolic: 0 ICA/CCA Ratio: 1.2 ICA Stenosis: Less than 50% ICA Plaque: Heterogeneous LEFT Common Carotid Artery (cm/s): Proximal Systolic: 73 Proximal Diastolic: 16 Mid Systolic: 76 Mid Diastolic: 16 Distal Systolic: 61 Distal Diastolic: 15 Internal Carotid Artery (cm/s): Proximal Systolic: 56 Proximal Diastolic: 11 Mid Systolic: 73 Mid Diastolic: 26 Distal Systolic: Not Done. External Carotid Artery (cm/s): Systolic: 70 Diastolic: 8 Vertebral Artery (cm/s): Systolic: 64 Diastolic: 17 Subclavian Artery(cm/s): Systolic: 154 Diastolic: 0 ICA/CCA Ratio: 1.2 ICA Stenosis: Less than 50% ICA Plaque: Heterogeneous Abbreviations: CCA = Common Carotid Artery. ICA = Internal Carotid Artery. ECA =External Carotid Artery. Vert = Vertebral Artery. ICA/CCA Ratio = maximalICA PSV divided by the distal CCA PSV. DIRECT TEST FINDINGS: Right: Doppler flow velocities and waveform contours demonstrate nohemodynamically significant elevation throughout the internal carotidartery. No plaque is visualized in the common carotid artery.Unremarkable external carotid artery. Anterograde flow is noted in thevertebral artery. The subclavian artery is patent. Left: Doppler flow velocities and waveform contours demonstrate nohemodynamically significant elevation throughout the internal carotidartery. No plaque is visualized in the common carotid artery.Unremarkable external carotid artery. Anterograde flow is noted in thevertebral artery. The subclavian artery is patent. IMPRESSIONS: 1. <50% stenosis noted in the right internal carotid artery. 2. <50% stenosis noted in the left internal carotid artery. 3. No stenosis is noted in the common carotid arteries bilaterally. 4. Unremarkable external carotid arteries bilaterally. 5. Antegrade flow in the bilateral cervical vertebral arteries. 6. Normal examination of the bilateral subclavian arteries. STENOSIS: Internal carotid artery stenosis by duplex ultrasonography hasbeen validated by comparing findings with angiographic stenosis. NASCETmethods were used, where the most severe stenosis represents thenumerator, and the normal internal carotid artery diameter distal to thestenosis where the gómez are parallel represents the denominator. us Nik Sanchez MD CV US NEUROVASCULAR Final Re sult documented in this encounter Visit Diagnoses Diagnosis Carotid stenosis, left- Primary Occlusion and stenosis of carotid artery without mention of cerebral infarction Carotid stenosis, left Occlusion and stenosis of carotid artery without mention of cerebral infarction documented in this encounter Care Teams Computer Operations Analyst Relationship Specialty Start Date End Date Bart Harding DO [address] [facility] 1 [place] [id number] PCP - General Internal Medicine 01/25/20 Jemima Ross MD [email or web address] 03/30/16 Estefani Palencia MD [address] [facility] 4 [place] [address] [email or web address] Gastroenterology 03/30/16 Steph Mcneil MD [address] [place] [address] [place] [phone] [email or web address] Neurology 03/30/16 Julius Mccoy MD [address] [place] [address] Drive [address]_[place] [address] General Surgery 01/25/20 Jeremy Fierro MD [address] [place] [address] Gastroenterology 01/25/20 Ni Case NP [address] [facility] 27 [place] [address] Psychiatry 08/18/20 documented as of this encounter Additional Source Comments The information contained in this document represents components of the legal health record. It is not the complete legal health record.[facility]
--- OUTSIDE RECORDS SUMMARY | 2025-05-28 21:48 | XMS_ITS | Encounter Summary ---
Author Organization [facility] Address [address] [facility] [address] [place] [address] Phone Care Team Providers Care Syrup Shed Supervisor Name Role Phone Jemima Ross MD Unavailable [phone] Etsefani Palencia MD Unavailable Steph Mcneil MD Unavailable Bart Harding DO Primary Care Provide r Julius Mccoy MD Unavailable [phone] Jeremy Fierro MD Unavailable [phone] Ni Case NP Unavailable Encounter Details Date Type Department Care Team (Late st Contact Info) Description 11/27/[address] [facility], Ct Scan - [facility] 30 [place] [address] Social History Tobacco Use Types Packs/Day Years [...] 10:09 AM EDT Jessica Wilson RN * [place] Suicide Severity Rating Scale (Screener/Recent Self-Report) Question [...] on filedocumented in this encounter Care Teams Syrup Shed Supervisor Relationship Specialty Start Date End Date Bart Harding DO [address] [facility] 1 [place] [address] PCP - General Internal Medicine 01/25/20 Jemima Ross MD [email or web address] Gastroenterology 03/30/16 Estefani Palencia MD [address] [facility] 4 [place] [address] [email or web address] 03/30/16 Steph Mcneil MD [address] [facility] [address] [place] [address] [email or web address] Neurology 03/30/16 Julius Mccoy MD [address] [place] [address] [address]_[place] [address] General Surgery 01/25/20 Jeremy Fierro MD [address] [place] [address] Gastroenterology 01/25/20 Ni Case NP 10 [facility] 27 [place] [address] Psychiatry 08/18/20 documented as of this encounter Additional Source Comments The information contained in this document represents components of the legal health record. It is not the complete legal health record.[facility]
--- OUTSIDE RECORDS SUMMARY | 2025-05-28 21:48 | XMS_ITS | Clinical Summary ---
Author Organization [facility] Address [address] [place] [address] Care Team Providers Care Ski Patrol Director Name Role Phone Unavailable Primary Care Provider Unavailabl e Social History Tobacco Use Types Packs/Day Years Used Date Smoking Tobacco: Never Assessed Comments Unknown Sex and Gender Information Value Date Recorded Sex Assigned at Not on file Legal Sex Female 2:49 PM EDT Gender Identity Not on file Sexual Orientation Not on file Plan of Treatment Health Maintenance Due Date Last Done Comments Advance Care Planning 1940 DTaP/Tdap/Td Vaccines (1 - Tdap) 1957 Pneumococcal Vaccines 50+ (1 of 1 - PCV) 1988 Zoster (Shingles) Vaccine (1 of 2) 1988 RSV Vaccine 50 years and old er and Patients (1 - 1-dose 75+ series) 2013 COVID-19 Vaccine ( - 2024-2 6 season) 2025 Hepatitis B Vaccines Aged Out No long er eligible based on patient's age to complete this topic
--- OUTSIDE RECORDS SUMMARY | 2025-05-28 21:48 | XMS_ITS | Clinical Summary ---
Author Organization [facility] Address [address] [facility] [address] [place] [phone] Phone Care Team Providers Care Rejogger Name Role Phone Jemima Ross MD Unavailable [phone] Estefani Palencia MD Unavailable Steph Mcneil MD Unavailable Bart Harding DO Primary Care Provide r Julius Mccoy MD Unavailable Jeremy Fierro MD Unavailable Ni Case NP Unavailable Allergies Active Allergy Reactions Criticality Noted Date Comments Amoxicillin Other (See Comments) Medium 05/26/2013 meningitis Chocolate 08/27/2020 Hydromorphone 08/27/2020 Mold 08/27/2020 Phs Other Free Text-See Phs Viewer 05/24/2015 mold Soy 08/27/2020 Tomato 09/12/2022 Medications clonazePAM (KLONOPIN) 0.25 MG disintegrating tablet Take 1 tablet by mouth daily. 09/13/19 14 Active sertraline (ZOLOFT) 100 MG tablet Take 175 mg by mouth daily. 09/13/19 14 Active cholecalciferol (VITAMIN D3) 1,000 unit tablet Take 1,000 Units by mouth daily. Reported on 07/31/2016 Active b complex vitamins capsule Take 1 capsule by mouth daily. Reported on 07/31/2016 Active ksdgfjor-yqfk-lan cuba gluconat (CENTRUM WITH IRON) 9 mg iron/15 mL Liqd Take 15 mL by mouth daily. Reported on 07/31/2016 Active bacillus coagulans-inulin 1 billion-250 cell-mg Cap Take 250 mg by mouth daily. Reported on 07/31/2016 Active biotin 300 mcg Tab Take 5,000 mcg by mouth daily. Reported on 07/31/2016 Active ciprofloxacin HCl (CIPRO) 500 MG tablet Take 500 mg by mouth 2 (two) times a day. Active metroNIDAZOLE (FLAGYL) 500 MG tablet Take 500 mg by mouth 3 (three) times a day. Active Medication-Free Text daily. Turmeric Active bisacodyl (DULCOLAX) [address] 1 suppository (10 mg total) rectally daily. 100 suppository 2 04/22/20 Active Additional Information Patient not taking.Reported on 11/27/2024 pancrelipase, aamzld-dpqjwtee-z mylase, (CREON) 12,000-38,000 -60,000 unit CpDR capsule Take 1 capsule (12,000 units of lipase total) by mouth 3 (three) times a day with meals. 270 capsule 3 04/22/20 Active Additional Information Patient not taking.Reported on 11/27/2024 gihe-D4-tmogiz-B6 -Pr-Ql-ilkysg 250 mg-400 unit -40 mg-5 mg Tab Take by mouth daily. Active gabapentin (NEURONTIN) 300 MG capsule Take 1 capsule (300 mg total) by mouth 3 (three) times a day. 270 capsule 3 05/31/20 24 Active omeprazole (PRILOSEC) 20 MG capsuleIndication s:Dyspepsia TAKE 1 CAPSULE (20 MG TOTAL) BY MOUTH DAILY. TAKE 30 MINUTES BEFORE BREAKFAST ON AN EMPTY STOMACH 90 capsule 3 10/07/19 25 Active Additional Information Patient not taking.Reported on 11/27/2024 omeprazole (PRILOSEC) 20 MG capsule Take 1 capsule (20 mg total) by mouth daily. Take 30 minutes before breakfast on an empty stomach 90 capsule 3 05/31/20 24 025 Active Problems Problem Noted Date Diagnosed Date Pelvic floor dysfunction 06/07/2024 Anemia 05/31/2024 Fatty liver 05/31/2024 Fibromyalgia 05/31/2024 Levator spasm 05/31/2024 Osteoarthritis 05/31/2024 Abdominal pain 04/14/2024 Osteoarthritis of both knees 08/31/2023 Anxiety state 09/12/2022 Pure hypercholesterolemia 09/12/2022 Chronic kidney disease, stage 2 (mild) Dyspepsia 08/03/2016 Globus sensation 08/03/2016 Gastroesophageal reflux disease 04/08/2016 Pharyngoesophageal dysphagia 04/08/2016 Generalized abdominal wall pain 04/08/2016 Other irritable bowel syndrome 04/08/2016 Bloating symptom 04/08/2016 Fatigue 09/25/2015 Idiopathic small fiber sensory neuropathy 2015 Lumbar stenosis 09/25/2015 Rectal prolapse 05/26/2013 Overview (08/03/2014): Rectal prolapse 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 05/26 Overview (08/03/2014): Rectocele Family History Medical History Relation Comments Aneurysm Father Liver cancer Mother Pancreatic cancer Mother Relation Status Comments Father Mother Social History Tobacco Use Types Packs/Day Years Used Date Smoking Tobacco: Former Cigarettes Smokeless Tobacco: Never Tobacco Cessation:Counseling Given: Not Answered Comments:Quit smokin05/26/84 Education Answer Date Recorded Are you interested [...] Orientation Straight 11/27/2024 10 :09 AM EDT Last Filed Vital Signs Vital Sign Reading Time Taken Comments Blood Pressure 153/90 11/27/2024 3:00 PM EDT Pulse 94 11/27/2024 3:48 PM EDT Temperature 36.5 C (97.7 F) 11/27/2024 10:12 AM EDT Respiratory Rate 16 11/27/2024 3:48 PM EDT Oxygen Saturation 99% 11/27/2024 3:48 PM EDT Inhaled Oxygen Concentration - - Weight 61 kg (134 lb 8 oz) 11/27/2024 10:12 AM E DT Height 157.5 cm (5' 2 ) 11/27/2024 10:12 AM EDT Body Mass Index 24.6 11/27/2024 10:12 AM EDT Plan of Treatment Health Maintenance Due Date Last Done Comments Adult Td,Tdap Booster 1940 DEPRESSION SCREENING 1950 LIPID PANEL 1956 COLOGUARD 10/05/1983 FIT TEST 10/05/1983 FOBT 10/05/1983 SIGMOIDOSCOPY 10/05/1983 VIRTUAL COLONOSCOPY 10/05/1983 PNEUMOCOCCAL VACCINES (50+ years) (1 of 1 - PCV) 1988 ZOSTER VACCINES (1 of 2) 1988 OSTEOPOROSIS SCREENING INITI AL (ONE-TIME) 10/05/2003 RSV VACCINE (1 - 1-dose 75+ series) 2013 COLONOSCOPY 08/21/2024 08/21/2022, 08/25/2013 COLORECTAL CANCER SCREENING 08/21/2024 INFLUENZA VACCINE (#1) 2025 COVID-19 VACCINE (3 - 2024-2 6 season) 2025 08/23/2020, 08/02/2020 HEPATITIS A VACCINES Aged Out No long er eligible based on patient's age to complete this topic HIB VACCINES Aged Out No longer eligi ble based on patient's age to complete this topic MENINGOCOCCAL VACCINES (ACWY) Aged Out No longer eligible based on patient's age to complete this topic MENINGOCOCCAL VACCINES (B) Aged Out N o longer eligible based on patient's age to complete this topic Medical Devices Implanted Type Area Marine Electronics Technician Device Identifier Shelf Expiration Date Model / Serial / Lot Clip Hemostasis 360deg 235cm Resolution 360 Latex Free 2.8mm Channel Bx/20ea - [id number] Implanted:Qty: 1 on 08/21/2022 by Adelso Green MD at [facility] N/A: [employer] [id number] 04/09/2025 [id number] / / [id number] Description:POST-POLYPECTOMY CLOSURE Procedures Procedure Name Priority Date/Time Associated Diagnosis Comments ENDOSCOPY, COLON 08/21/2022 11:0 1 AM EST from Last 3 Months or Most Recently Relevant to Health Maintenance Results * ENDOSCOPY, COLON (08/21/2022 11:01 AM EST) Narrative Transcriptions Adelso Green MD - 08/21/2022 11:01 AM EST [facility] Patient Name: Rachna Luna MD:: ADELSO GREEN MD, Procedure Date: 08/21/2022 11:01 AM Date of : 1940 Age: 81 Admit Type: Outpatient Gender: Female Room: [facility] Referring MD: Bart Harding Exam Type: Colonoscopy Indications: High risk colon cancer surveillance: Personalhistory of colonic polyps, Abdominal pain in the rightupper quadrant, rectal prolapse s/p rectopexy and other reparative procedures Medications: Monitored Anesthesia Care Procedure: Informed consent was obtained from the patientafter discussion of the indications, limitations, alternatives, benefits, and risks of the procedure. Risks specifically discussed include but are not limited to medication reactions, missed lesions, bleeding, perforation, or the need for emergent surgery. Throughout the procedure, the patient's blood pressure, pulse, end-tidal CO2, and oxygensaturations were monitored continuously. The Olympus adult variable colonoscope [id number] #1 was introduced through the anus and advanced to the terminal ileum. The colonoscopy was performedwithout difficulty. The patient tolerated the procedurewell. The quality of the bowel preparation was good. Anatomical landmarks were photographed. Complications: No immediate complications. Estimated blood loss:None. Findings: The perianal and digital rectal examinations were normal. There are very mild prolapse changes limited to the very distal rectum A few small-mouthed diverticula were found in the sigmoid colon. The recto-sigmoid colon, descending colon, splenic flexure, transverse colon, hepatic flexure,ascending colon, appendiceal orifice, ileocecal valve, ileum, rectum (on retroflexion) and ascending colon (on retroflexion) appeared normal. Two sessile polyps were found in the cecum. Thepolyps were 5 mm in size. These polyps were removed with a cold snare. Resection and retrieval were complete.For hemostasis, one hemostatic clip was successfully placed. There was no bleeding at the end of the procedure. Impression: - Diverticulosis in the sigmoid colon. - The rectum (on retroflexion), ascending colon (on retroflexion), descending colon, splenic flexure, transverse colon, hepatic flexure, ascending colon, recto-sigmoid colon, ileocecal valve, appendiceal orifice and terminal ileum are normal. - Two 5 mm polyps in the cecum, removed with a cold snare. Resected and retrieved. Clip was placed. Recommendation: - You should not require any further colonoscopy unless a symptom were to develop. Guidelinessuggest that screening exams may not be necessary after age75 - I will send you pathology results by letter. Ifyou do not get results in 3 weeks telephone myoffice. - Perform a CT scan (computed tomography) ofabdomen with contrast and pelvis with contrast atappointment to be scheduled. - Resume previous diet. - Continue present medications. - Await pathology results. ADELSO GREEN MD 08/21/2022 12:38:43 PM This report has been signed electronically. Number of Addenda: 0 Note Initiated On: 08/21/2022 11:01 AM Procedure Code(s): --- Professional --- 63637, Colonoscopy, flexible; with removal of tumor(s), polyp(s), or other lesion(s) by snare technique --- Technical --- 92327, Colonoscopy, flexible; with removal of tumor(s), polyp(s), or other lesion(s) by snare technique Diagnosis Code(s): --- Professional --- Z86.010, Personal history of colonic polyps D12.0, Benign neoplasm of cecum R10.11, Right upper quadrant pain K57.30, Diverticulosis of large intestine without perforation or abscess without bleeding --- Technical --- Z86.010, Personal history of colonic polyps D12.0, Benign neoplasm of cecum R10.11, Right upper quadrant pain K57.30, Diverticulosis of large intestine without perforation or abscess without bleeding CPT copyright 2021 [employer]. All rights reserved. The codes documented in this report are preliminary and upon gas appliance repairer reviewmay be revised to meet current compliance requirements. Procedure Date: 08/21/2022 11:01:12 AM [address] [place] [address] us Bart Harding DO GI PROCEDURE ORDERABL ES Final Result from Last 3 Months or Most Recently Relevant to Health Maintenance Insurance MEDICARE PART A & B [employer] MEDICARE SUPPLEMENT MEDICARE PART A & B [employer] MEDICARE SUPPLEMENT MEDICARE PART A & B [facility] [place] [phone] MEDICARE PART A & B [facility] EXTENSION MEDICARE SUPPLEMENT MEDICARE PART A & B Member Subscriber Plan / Payer ( fective 2005-Present) Name:Rachna Miramontes Member ID:[id number] Relation to Subscriber:Self Name:Rachna Miramontes Subscriber ID:[id number] Payer ID:[id number] Group ID:Not on file Type:Medicare Address: [facility] [address] [facility] [facility]ITAL[facility] [address] [place] [phone] [facility] EXTENSION MEDICARE SUPPLEMENT MEDICARE PART A & B [facility] EXTENSION MEDICARE SUPPLEMENT MEDICARE PART A & B [facility] EXTENSION MEDICARE SUPPLEMENT MEDICARE PART A & B [employer] EXTENSION MEDICARE SUPPLEMENT MEDICARE PART A & B [facility] EXTENSION MEDICARE SUPPLEMENT Care Teams Rejogger Relationship Specialty Start Date End Date Bart Harding DO Kristian [address] [place] [address] [address] [place] [id number] PCP - General Internal Medicine 01/25/20 Jemima Ross MD [email or web address] Gastroenterology 03/30/16 Estefani Palencia MD [address] [place] [id number] [email or web address] Gastroenterology 03/30/16 Steph Mcneil MD [address] [place] [id number] [email or web address] Neurology 03/30/16 Julius Mccoy MD [address] [place] [address] [address] [address] General Surgery 01/25/20 Jeremy Fierro MD [address] [place] [id number] Gastroenterology 01/25/20 Ni Case, KHALIF [address] [address] Psychiatry 08/18/20 Additional Source Comments The information contained in this document represents components of the legal health record. It is not the complete legal health record.[facility]
--- OUTSIDE RECORDS SUMMARY | 2025-05-28 21:48 | XMS_ITS | Clinical Summary ---
Author Organization [facility] Address [address] [place] [address] Phone Care Team Providers Care Porcelain Enameling Supervisor Name Role Phone Bart Harding Primary Care Provider [phone] Allergies No known active allergies Medications gabapentin (NEURONTIN) 300 mg capsule Take 1 capsule (300 mg total) by mouth 3 (three) times a day. Active sertraline (ZOLOFT) 100 mg tablet Take 1.5 tablets (150 mg total) by mouth 1 (one) time each day. Active omeprazole (PriLOSEC) [address] capsule Take 1 capsule (20 mg total) by mouth 1 (one) time each day. Active clonazePAM (KlonoPIN) 0.5 mg tablet Take 1 tablet (0.5 mg total) by mouth 1 (one) time each day in the morning. 08/16/2020 Active Encounters Date Type Department Care Team Description 05/26/2025 8:10 PM EST - 05/27/2025 4:20 PM EST Emergency [facility] Emergency [address] [place] [address] Aaron Esparza MD Kokkinos, Erika, MD Mogul, Ashley, MD Anxiety (Primary Dx); Other chronic pain Discharge Disposition: Home or Self Care from Last 3 Months Surgical History Surgery Date Site/Laterality Comments BACK SURGERY HYSTERECTOMY Social History Tobacco Use Types Packs/Day Years [...] on file Sexual Orientation Not on file Last Filed Vital Signs Vital Sign Reading Time Taken Comments Blood Pressure 141/67 05/27/2025 9:17 AM EST Pulse 100 05/27/2025 9:17 AM EST Temperature 36.6 C (97.9 F) 05/27/2025 9:17 AM EST Respiratory Rate 16 05/27/2025 9:17 AM EST Oxygen Saturation 95% 05/27/2025 9:17 AM EST Inhaled Oxygen Concentration - - Weight 59 kg (130 lb) 03/16/2024 3:48 PM EDT Height 160 cm (5' 3 ) 03/16/2024 3:48 PM EDT Body Mass Index 23.03 03/16/2024 3:48 PM EDT Plan of Treatment Health Maintenance Due Date Last Done Comments Drug Screen 1940 Non-Opioid Controlled Substance Agreement 1940 Hepatitis A Vaccines (1 of 2 - Risk 2-dose series) 1957 Pneumococcal Vaccine: 50+ Years (1 of 1 - PCV) 1988 Zoster Vaccines (1 of 2) 1988 Hepatitis B Vaccines (1 of 3 - Risk 3-dose series) 1998 RSV Immunization Adult Patients (1 - 1-dose 75+ series) 2013 Cholesterol Screening (Lipid Panel) 05/17/2022 Medicare Annual Wellness Visit 05/17/2022 Social Influencers of Health Screening 05/17/2022 Depression Screening 06/14/2024 COVID-19 Vaccine (4 - 2024-2 6 season) 2025 04/24/2021, 08/23/2020, 08/02/2020 Influenza Vaccine (#1) 2025 05/14/2022 Falls Risk Assessment 05/26/2026 05/26/2025 DTaP,Tdap,and Td Vaccines (2 - Td or Tdap) 09/07/2031 09/06/2021 Osteoporosis Screening (Bone Density Screening) 08/09/2033 08/09/2023 HIB Vaccines Aged Out No longer eligi ble based on patient's age to complete this topic HPV Vaccines Aged Out No longer eligi ble based on patient's age to complete this topic IPV Vaccines Aged Out No longer eligi ble based on patient's age to complete this topic MMR Vaccines Aged Out No longer eligi ble based on patient's age to complete this topic Meningococcal ACWY Vaccine Aged Out N o longer eligible based on patient's age to complete this topic Meningococcal B Vaccine Aged Out No l onger eligible based on patient's age to complete this topic RSV Immunization Patients Under 20 months Aged Out No longer eligible b ased on patient's age to complete this topic Varicella Vaccines Aged Out No longer eligible based on patient's age to complete this topic Procedures Procedure Name Priority Date/Time Associated Diagnosis Comments URINALYSIS WITH REFLEX MICROSCOPIC STAT 05/26/2025 11:05 PM EST URINALYSIS WITH REFLEX MICROSCOPIC STAT 05/26/2025 11:05 PM EST CBC WITH AUTO DIFFERENTIAL STAT 05/26/2025 9:29 PM EST CBC AND DIFFERENTIAL STAT 05/26/2025 9:29 PM EST LIPASE STAT 05/26/2025 9:29 PM EST COMPREHENSIVE METABOLIC PANEL STAT 05/26/2025 9:29 PM EST [facility] DEXA AXIAL SKELETON Routine 08/09/2023 5:24 PM EST Other specified disorders of bone density and structure, right thigh from Last 3 Months or Most Recently Relevant to Health Maintenance Results * Urinalysis with reflex microscopic (05/26/2025 11:05 PM EST) Specific [place] Urine 1.019 1.003 - 1.030 LAB URINALYSIS - AUTOMATED METHOD 05/26/2025 11:53 PM EST [facility] pH, Urine 6.0 5.0 - 8.0 pH LAB URINALYSIS - AUTOMATED METHOD 05/26/2025 11:53 PM [facility] Leukocytes, Urine Negative Negative LAB URINALYSIS - AUTOMATED METHOD 05/26/2025 11:53 PM [facility] Nitrite, Urine Negative Negative LAB URINALYSIS - AUTOMATED METHOD 05/26/2025 11:53 PM [facility] Protein, Urine Negative <=Trace mg/dL LAB URINALYSIS - AUTOMATED METHOD 05/26/2025 11:53 PM [facility] Glucose, Urine Negative Negative mg/dL LAB URINALYSIS - AUTOMATED METHOD 05/26/2025 11:53 PM [facility] Ketones, Urine Negative Negative mg/dL LAB URINALYSIS - AUTOMATED METHOD 05/26/2025 11:53 PM [facility] Urobilinogen, Urine 0.2 0.2 - 1.0 mg/dL LAB URINALYSIS - AUTOMATED METHOD 05/26/2025 11:53 PM [facility] Bilirubin, Urine Negative Negative LAB URINALYSIS - AUTOMATED METHOD 05/26/2025 11:53 PM [facility] Blood, Urine Negative Negative LAB URINALYSIS - AUTOMATED METHOD 05/26/2025 11:53 PM [facility] Urine Urine specimen obtained by clean catch procedure / Unknown Non-blood Collection / Unknown 05/26/2025 11:05 PM EST 05/26/2025 11:12 PM EST us Aaron Esparza MD LAB URINE ORDERABLES Sosa cavanaugh Result [facility] [address] [place] [address], * (ABNORMAL) CBC auto differential (05/26/2025 9:29 PM EST) WBC 5.3 4.8 - 10.8 K/mcL LAB HEMETOLOGY METHOD 05/26/2025 9:56 PM [facility] RBC 4.10 3.80 - 4.80 M/mcL LAB HEMETOLOGY METHOD 05/26/2025 9:56 PM [facility] Hemoglobin 10.6(L) 11.5 - 16.0 g/dL LAB HEMETOLOGY METHOD 05/26/2025 9:56 PM [facility] Hematocrit 32.8(L) 35.0 - 47.0 % LAB HEMETOLOGY METHOD 05/26/2025 9:56 PM [facility] MCV 80.6 79.0 - 98.0 FL LAB HEMETOLOGY METHOD 05/26/2025 9:56 PM [facility] MCH 26.0(L) 27.0 - 32.0 pcg LAB HEMETOLOGY METHOD 05/26/2025 9:56 PM [facility] MCHC 32.3 32.0 - 37.0 g/dL LAB HEMETOLOGY METHOD 05/26/2025 9:56 PM [facility] RDW 16.8(H) 11.0 - 15.0 % LAB HEMETOLOGY METHOD 05/26/2025 9:56 PM [facility] Platelets 199 130 - 400 K/mcL LAB HEMETOLOGY METHOD 05/26/2025 9:56 PM [facility] MPV 9.7 7.0 - 11.0 FL LAB HEMETOLOGY METHOD 05/26/2025 9:56 PM [facility] NRBC 0.0 <1.0 % LAB HEMETOLOGY METHOD 05/26/2025 9:56 PM [facility] NRBC Absolute 0.00 <0.10 K/mcL LAB HEMETOLOGY METHOD 05/26/2025 9:56 PM [facility] Neutrophils Relative 67.8 % LAB HEMETOLOGY METHOD 05/26/2025 9:56 PM [facility] Lymphocytes Relative 22.2 % LAB HEMETOLOGY METHOD 05/26/2025 9:56 PM [facility] Monocytes Relative 7.3 % LAB HEMETOLOGY METHOD 05/26/2025 9:56 PM [facility] Eosinophils Relative 2.1 % LAB HEMETOLOGY METHOD 05/26/2025 9:56 PM [facility] Basophils Relative 0.2 % LAB HEMETOLOGY METHOD 05/26/2025 9:56 PM [facility] Immature Granulocytes Relative 0.4 % LAB HEMETOLOGY METHOD 05/26/2025 9:56 PM [facility] Neutrophils Absolute 3.61 1.50 - 7.00 K/mcL LAB HEMETOLOGY METHOD 05/26/2025 9:56 PM [facility] Lymphocytes Absolute 1.18 1.00 - 5.00 K/mcL LAB HEMETOLOGY METHOD 05/26/2025 9:56 PM [facility] Monocytes Absolute 0.39 0.20 - 1.00 K/mcL LAB HEMETOLOGY METHOD 05/26/2025 9:56 PM [facility] Eosinophils Absolute 0.11 0.00 - 0.50 K/mcL LAB HEMETOLOGY METHOD 05/26/2025 9:56 PM [facility] Basophils Absolute 0.01 0.00 - 0.20 K/mcL LAB HEMETOLOGY METHOD 05/26/2025 9:56 PM [facility] Immature Granulocytes Absolute 0.02 0.00 - 0.03 K/mcL LAB HEMETOLOGY METHOD 05/26/2025 9:56 PM [facility] Blood Venous blood specimen / Unknown Venipuncture / Unknown 05/26/2025 9:29 PM EST 05/26/2025 9:46 PM EST Aaron Esparza MD LAB BLOOD ORDERABLES Sosa l Result Performing Organization Address City/[facility]/ZIP Co de Phone Number [facility] [address] [place] [address], [place] [phone] * Lipase (05/26/2025 9:29 PM EST) Lipase 43 12 - 53 unit/L 05/26/2025 10:17 PM [facility] Blood Venous blood specimen / Unknown Venipuncture / Unknown 05/26/2025 9:29 PM EST 05/26/2025 9:46 PM EST Aaron Esparza MD LAB BLOOD ORDERABLES Sosa l Result Performing Organization Address [facility]/ZIP Co de Phone Number [facility] [address] [place] [address], [place] [phone] * Comprehensive Metabolic Panel (CMP) (05/26/2025 9:29 PM EST) Sodium 139 133 - 145 mmol/L 05/26/2025 10:17 PM [facility] Potassium 4.2 3.5 - 5.5 mmol/L 05/26/2025 10:17 PM [facility] Chloride 101 96 - 110 mmol/L 05/26/2025 10:17 PM [facility] CO2 29 21 - 32 mmol/L 05/26/2025 10:17 PM [facility] Anion Gap 9 3 - 11 05/26/2025 10:17 PM [facility] Glucose 84 70 - 100 mg/dL 05/26/2025 10:17 PM [facility] BUN 19 5 - 25 mg/dL 05/26/2025 10:17 PM [facility] Creatinine 0.86 0.50 - 1.10 mg/dL 05/26/2025 10:17 PM [facility] eGFR 66 >=60 mL/min/1. 73m2 05/26/2025 10:17 PM [facility] Comment:Calculation based on the Chronic Kidney Disease Epidemiology Collaboration (CKD-EPI) equation refit without adjustment for race. BUN/Creatinine Ratio 22.1 05/26/2025 10:17 PM [facility] Calcium 9.2 8.5 - 10.5 mg/dL 05/26/2025 10:17 PM [facility] AST (SGOT) 26 10 - 42 unit/L 05/26/2025 10:17 PM [facility] ALT (SGPT) 12 10 - 60 unit/L 05/26/2025 10:17 PM [facility] Alkaline Phosphatase 80 42 - 121 unit/L 05/26/2025 10:17 PM [facility] Total Protein 7.3 6.0 - 8.0 g/dL 05/26/2025 10:17 PM [facility] Albumin 4.7 3.2 - 5.0 g/dL 05/26/2025 10:17 PM [facility] Total Bilirubin 0.3 0.0 - 1.4 mg/dL 05/26/2025 10:17 PM [facility] Blood Venous blood specimen / Unknown Venipuncture / Unknown 05/26/2025 9:29 PM EST 05/26/2025 9:46 PM EST us Aaron Esparza MD LAB BLOOD ORDERABLES Sosa cavanaugh Result [facility] [address] [place] [address], * NIURKA DEXA AXIAL SKELETON (08/09/2023 5:24 PM EST) Anatomical Region Laterality Modality Mammography 08/09/2023 2:21 PM EST Narrative 08/09/2023 5:24 PM [facility] Diagnostic Imaging Department [address] [place], [place] [id number] Patient: RACHNA BROWN /Age/Sex: 1940 82 - F Unit#: [id number] [facility] Ordering Physician: VIVIAN KOENIG MD [facility] Dexa Axial Skeleton - 08/09/23 [id number] Report Status:Signed History: Low estrogen state due to menopause. Personal history of fracture. Tobacco user. On omeprazole. Findings: Bone densitometry is performed utilizing dual energy x-ray absorptiometry (DXA) in the [employer] unit. The lumbar spine and proximal femora are evaluated in the AP projection. The FRAX questionaire was completed. The results indicate low bone mass (osteopenia), with a right femoral neck T- score of -1.9. The Z score is 0.5, indicating bone mineral density within the range of normal for age. The detailed DEXA report will be mailed to the referring physician's office. [employer] FRAX: 10-year Probability of Fracture: Major Osteoporotic 22.0 percent Hip 6.0 percent. IMPRESSION: Osteopenia. [id number] Dictating Physician: AMANDA VIEIRA MD Electronically Signed by: AMANDA VIEIRA MD Dic Date/Time: 08/09/23 1723 Sign date/Time: 08/09/23 1724 Procedure Note Amanda Vieira MD - 01/31/2024 [facility] Diagnostic Imaging Department [address] [place] [address] Patient: RACHNA BROWN /Age/Sex: 1940 - 82 - F Unit#: [id number] Location/Status: [facility] CLI Mnemonic/Ordering Site: [facility] Ordering Physician: VIVIAN KOENIG MD [facility] Dexa Axial Skeleton - 08/09/23 - [id number] Report Status:Signed History: Low estrogen state due to menopause. Personal history offracture. Tobacco user. On omeprazole. Findings: Bone densitometry is performed utilizing dual energy x-ray absorptiometry(DXA) in the [employer] unit. The lumbar spine and proximal femora areevaluated in the AP projection. The FRAX questionaire was completed. The results indicate low bone mass (osteopenia), with a right femoral neckT- score of -1.9. The Z score is 0.5, indicating bone mineral density withinthe range of normal for age. The detailed DEXA report will be mailed to the referring physician's office. [employer] FRAX: 10-year Probability of Fracture: Major Osteoporotic 22.0 percent Hip 6.0 percent. IMPRESSION: Osteopenia. [id number] Dictating Physician: AMANDA VIEIRA MD Electronically Signed by: AMANDA VIEIRA MD Dic Date/Time: 08/09/23 1723 Sign date/Time: 08/09/23 1724 Vivian Koenig MD IMG BI PROCEDURES Final Re sult from Last 3 Months or Most Recently Relevant to Health Maintenance Insurance MEDICARE [employer] Advance Directives Documents on File Type Date Recorded Patient Neonatal Doctor Expl anation Health Care Decision (hx) 04/10/2024 AD VANESSA DIRECTIVE Health Care Decision (hx) 04/10/2024 AD VANESSA DIRECTIVE Care Teams Porcelain Enameling Supervisor Relationship Specialty Start Date End Date Bart Harding DO [address] [place] [phone] PCP - General Internal Medicine 05/27/25
--- OUTSIDE RECORDS SUMMARY | 2025-05-28 21:48 | XMS_ITS | Encounter Summary ---
Author Organization [facility] Address [address] [facility] [address] [place] [address] Phone Care Team Providers Care Dialysis Clinical Manager Name Role Phone Jemima Ross MD Unavailable [phone] Estefani Palencia MD Unavailable [phone] Steph Mcneil MD Unavailable Bart Harding DO Primary Care Provide r Julius Mccoy MD Unavailable Jeremy Fierro MD Unavailable [phone] Ni Case NP Unavailable [phone] Encounter Details Date Type Department Care Team (Latest Contact Info) Description 11/30/2022 Transcribe Orders Virtual Department [address] [place] [address] Adelso Santana MD [address] [place] [id number] [email or web address] Hiatal hernia (Primary Dx) Social History Tobacco Use Types [...] documented as of this encounter Results * [place] BARIUM SWALLOW ESOPHAGRAM DOUBLE CONTRAST (03/02/2023 12:04 PM EDT) Anatomical Region Laterality Modality Chest Computed Radiogr aphy 03/02/2023 12:1 2 PM EDT Impressions 03/02/2023 1:22 PM EDT Moderate sized sliding hiatal hernia. Mild esophageal dysmotility. Deep laryngeal penetration with no evidence of belkis aspiration. FLUOROSCOPY TIME: 2 minutes 25 seconds NUMBER OF IMAGES: [id number] ATTESTATION: I, Jasmeet Felton as teaching physician, have reviewed the images for this case and if necessary edited the report originally created by Zay Wolf. Narrative 03/02/2023 1:22 PM EDT BARIUM SWALLOW ESOPHAGRAM DOUBLE CONTRAST HISTORY: Hiatal hernia. Eructation. COMPARISON: CT abdomen 08/21/2022 OPERATORS: Zay Wolf SUPERVISING PHYSICIAN: Jasmeet Felton TECHNIQUE: Double contrast barium swallow examination was performed with Sodium Carbonate and Barium. FINDINGS: A preliminary lateral view of the neck demonstrates mild degenerative disc changes with no acute bony pathology. ESOPHAGUS: Motility: Mild esophageal dysmotility represented by a diminished primary wave. Deep laryngeal penetration with no cough reflex or evidence of belkis aspiration. Mucosa: Tiny incidental esophageal web demonstrated. No other gross mucosal pathology. Distensibility: Normal. GASTROESOPHAGEAL JUNCTION: Moderate sized sliding hiatal hernia. No paraesophageal component. TABLET: A standard 13 mm barium tablet passed through the esophagus into the stomach without difficulty. GASTROESOPHAGEAL REFLUX: Trace gastroesophageal reflux to the distal esophagus elicited by provocative maneuvers. Fluoroscopic imaging of the right lower quadrant where the patient describes pain was noncontributory. Procedure Note Jasmeet Felton MD - 03/02/2023 BARIUM SWALLOW ESOPHAGRAM DOUBLE CONTRAST HISTORY: Hiatal hernia. Eructation. COMPARISON: CT abdomen 08/21/2022 OPERATORS: Zay Wolf SUPERVISING PHYSICIAN: Jasmeet Felton TECHNIQUE: Double contrast barium swallow examination was performed withSodium Carbonate and Barium. FINDINGS: A preliminary lateral view of the neck demonstrates mild degenerative discchanges with no acute bony pathology. ESOPHAGUS: Motility: Mild esophageal dysmotility represented by a diminishedprimary wave. Deep laryngeal penetration with no cough reflex or evidenceof belkis aspiration. Mucosa: Tiny incidental esophageal web demonstrated. No other grossmucosal pathology. Distensibility: Normal. GASTROESOPHAGEAL JUNCTION: Moderate sized sliding hiatal hernia. Noparaesophageal component. TABLET: A standard 13 mm barium tablet passed through the esophagus intothe stomach without difficulty. GASTROESOPHAGEAL REFLUX: Trace gastroesophageal reflux to the distalesophagus elicited by provocative maneuvers. Fluoroscopic imaging of the right lower quadrant where the patientdescribes pain was noncontributory. IMPRESSION: Moderate sized sliding hiatal hernia. Mild esophageal dysmotility. Deep laryngeal penetration with no evidence of belkis aspiration. FLUOROSCOPY TIME: 2 minutes 25 seconds NUMBER OF IMAGES: 247 ATTESTATION: I, Jasmeet Felton as teaching physician, have reviewed theimages for this case and if necessary edited the report originally createdby Zay Wolf. Adelso Santana MD [facility] Final Result documented in this encounter Visit Diagnoses Diagnosis Hiatal hernia- Primary Diaphragmatic hernia without mention of obstruction or gangrene Hiatal hernia Diaphragmatic hernia without mention of obstruction or gangrene documented in this encounter Care Teams Dialysis Clinical Manager Relationship Specialty Start Date End Date Mehdi, Claudymallory DO Kristian [address] [place] [phone] PCP - General Internal Medicine 01/25/20 Jemima Ross MD [email or web address] 03/30/16 Estefani Palencia MD [address] [place] [id number] [email or web address] Gastroenterology 03/30/16 Steph Mcneil MD [address] [place] [email or web address] Neurology 03/30/16 Julius Mccoy MD [address] [place] [address] Drive [address] [address] General Surgery 01/25/20 Jeremy Fierro MD [address] [place] [address] Gastroenterology 01/25/20 Ni Case NP [address] [place] [address] [address] [place] [address] Psychiatry 08/18/20 documented as of this encounter Additional Source Comments The information contained in this document represents components of the legal health record. It is not the complete legal health record.[facility]
--- OUTSIDE RECORDS SUMMARY | 2025-05-28 21:48 | XMS_ITS | Data Portability ---
Author Organization [place] [facility] Address [address] [place] [address] Care Team Providers Care Cart Pusher Name Role Phone BRITTNI JONES Primary Care Provider Assessment Encounter Date Assessment Date Assessment LastModified by Organization Details LastModified Time 08/05/2021 08/05/2021 Time On Scene with Patient: 01:08:37 Patient lives in a clean/cluttered house. 80 y/o female patient with complex PMHx of aortic regurgitation, constipation, rectal prolapse, chronic pain syndrome, osteoarthritis, and a plethora of health complaints. Her main complain is her abdominal discomfort radiating to right CVA, small bowel movements, urinary frequency, and low grade temp. PSH of cholecystectomy, rectoplexy, hysterectomy, ventral hernia, and right hip labral tear with arthroscopic repair. She is followed by GI located in [place].She has yet to make an appointment with GI due to transportation, but she will make an appointment to further eval. Patient went to [address] [facility] with CT scan revealing gas and stool . States she has to stimulate her levator muscle in order to have a bowel movement. States when she compresses on certain back, or pelvic muscles she is able to have a large BM. It shoots across to the wall . She has no history of kidney stones and states she drinks a lot of water . She takes Miralx, fiber, and suppository to assist with constipation. Exam: Patient pleasant, alert and oriented, in euthymic mood. Over weight, antalgic gait. EOMI, respiration normal with clear lung sounds with auscultation, cardiac S1,S2 no murmurs, No edema to extremity. Normal bs x 4 quads, RUQ discomfort with palpation, non rebound. PSH cholecystectomy. VS stable with low grade temp of 99.0 degrees. DD: cauda equina, IBS-c, renal calculi, SBO Urine dipstick done with no finding indicative of UTI Patient has sensation to lower extremity less likely cauda equina, Patient with positive bs and able to move her bowels although small. Less likely SBO CT scan done [address] [facility]. Imaging would have revealed renal/ureteral calculi. This is a patient who has a lengthy history of GI issues as well as GI surgical intervention. She would benefit from being further evaluated by specialist with further imaging for possible nerve compression causing inability to have a normal BM without stimulation. Discussed with patient seeking emergency care with worsening of symptoms. Prescribed suppository to assist with constipation . [email or web address] Not available 08/08/2021 21:55:38 09/24/2021 09/24/2021 Time On Scene with Patient: 00:33:15 DDX: cellulitis, abscess, foriegn body, tenosynovitis, Left hand is without signs of cellulitis. There is NO pain on passive NOR active range of motion. She is having tenderness suggestive of possible scaphoid fracture but injury occurred 2 weeks ago. PT had xrays done but not scaphoid views. There is a concern of wood splinters being in hand. The scab was deroofed, cleansed and probed for any foreign material with only small pieces. This also would not be surprising given the duration of wood possibly being in her hand. Discussed this with patient who wanted her hand cut open to investigate further. 1. COntinue with cleansing with soap and water and warm soaks with epsom salt 2. [facility] (pt has been seen there before for her carpal tunnel issues). Make sure to advocate for scaphoid films and to re-evaluate the hand. 3. Seek re-evaluation with any worsening redness, swelling, onset of pain, fevers chills, trouble with using the hand at all. Pt verbalized understanding of this and the importance of doing these things to ensure the function of her hand remains intact. [email or web address] Not available 09/24/2021 18:51:43 Plan of Treatment Reminders Order Date Submit Date Provider Last Modified By Organization Details Last Modified Time Details Appointments None recorded. Lab urinalysis, dipstick 2021 022 umberto [id number], [address] [place], [address], 17:49:43 Referral None recorded. Procedures None recorded. Surgeries None recorded. Imaging None recorded. Medication Orders Dulcolax (bisacodyl) 10 mg rectal suppository 2021 022 [id number], [address] [facility], [place], [address], 18:05:28 Patient TargetsNo targets recorded. Patient Instructions Encounter Date Encounter Id Patient Instructions Last Modified By Organization Details Last Modified Time 08/05/2021 [id number] Thank you [facility] yo ur [facility] for abdominal pain, constipation, and urinary frequency. At this time, we do not see evidence of a serious surgical or infectious cause of your symptoms. However, lab tests and an evaluation cannot always exclude serious causes of abdominal pain. Please see a medical professional in 12-24 hours to be re-examined. Seek immediate medical attention for increased pain, vomiting or fever. If you develop any new or worsening symptoms and need after hours care, please go to nearest ER and/or call 911. If you have additional concerns or develop a change in your condition between 8am-10pm, please call [facility] at [phone] to help navigate your care. [email or web address] Not available 08/05/2021 18:00:27 Reason for Referral None Reported. Results Created Date Observation Date Name Description Value Unit Range Abnormal Flag Note LastModifiedBy Organization Detail LastModifiedTime 08/05/19 22 08/05/2021 urina lysis , dipst ick Color yellow Not Available [facility] [address] [place], [address], 08/05/2021 17:47:18 08/05/19 22 08/05/2021 urina lysis , dipst ick Glucose (ref: neg) Neg Not Available [facility] [address] [place], [address], 08/05/2021 17:47:18 08/05/19 22 08/05/2021 urina lysis , dipst ick Bilirubin (ref: neg) Neg Not Available [facility] [address] [place], [address], 08/05/2021 17:47:18 08/05/19 22 08/05/2021 urina lysis , dipst ick Ketones (ref: neg) Neg Not Available [facility] [address] [place], [address], 08/05/2021 17:47:18 08/05/19 22 08/05/2021 urina lysis , dipst ick Specific Willow (ref: 1.003 - 1.035) 1.030 Not Available [facility] [address] [place], [address], 08/05/2021 17:47:18 08/05/19 22 08/05/2021 urina lysis , dipst ick Blood (ref: neg) Neg Not Available [facility] [address] [place], [address], 08/05/2021 17:47:18 08/05/19 22 08/05/2021 urina lysis , dipst ick pH (ref: 5-7) 5.0 Not Available [facility] [address] [place], [address], 08/05/2021 17:47:18 08/05/19 22 08/05/2021 urina lysis , dipst ick Protein (ref: neg) Not Available [facility] [address] [place], [address], 08/05/2021 17:47:18 08/05/19 22 08/05/2021 urina lysis , dipst ick Urobili 0.2 Not Available [facility] [address] [place], [address], 08/05/2021 17:47:18 08/05/19 22 08/05/2021 urina lysis , dipst ick Nitrites (ref: neg) negati ve Not Available [facility] [address] [place], [address], 08/05/2021 17:47:18 08/05/19 22 08/05/2021 urina lysis , dipst ick Leukocytes (ref: neg) Neg Not Available [facility] [address] [place], [address], 08/05/2021 17:47:18 08/05/19 22 08/05/2021 urina lysis , dipst ick Location [facility], [address] [place] [address], [id number] Not Available [facility] [address] [place], [address], 08/05/2021 17:47:18 Result Notes None recorded. Procedures Surgical History Date Name Laterality Status Provider Name and Address Organization Details Recorded Time repair of rectum completed Lesia KHALIF Lees [address] [place] [address], [phone], [place] [facility] 08/08/2021 21:24:59 Cholecystectomy completed Lesia Lees NP [address] [place] [address], [address], [place] [facility] 08/08/2021 21:25:12 hysterectomy completed Lesia Lees NP [address] [place] [address], [address], [place] [facility] 08/08/2021 21:25:35 repair of hernia of anterior abdominal wall completed Lesia KHALIF Lees [address] [place] [address], [address], [place] [facility] 08/08/2021 21:25:49 Imaging Results None recorded. Procedure Notes None recorded. Medical Equipment None Reported. Allergies No known drug allergies Medications Name Sig Start Date Stop Date Status Note LastModified by Organization Details LastModified Time clindamycin HCl 300 mg capsule TAKE 1 CAPSULE BY MOUTH THREE TIMES DAILY UNTIL GONE 08/05 completed Not Available Not Available Not Available cephalexin 250 mg capsule TAKE 1 CAPSULE BY MOUTH TWICE A DAY 08/05 completed Not Available Not Available Not Available hydrocodone 5 mg-acetamin ophen 325 mg tablet 08/05 completed Not Available Not Available Not Available meloxicam 15 mg tablet active Not Available Not Available Not Available clonazepam 0.5 mg tablet TAKE 1 TABLET BY MOUTH EVERY MORNING active Not Available Not Available No t Available diphenoxyla te-atropine 2.5 mg-0.025 mg tablet active Not Available Not Available Not Available metronidazo le 500 mg tablet TAKE 1 TABLET BY MOUTH THREE TIMES A DAY 08/05 completed Not Available Not Available Not Available ciprofloxac in 500 mg tablet TAKE 1 TABLET BY MOUTH EVERY 12 HOURS 08/05 completed Not Available Not Available Not Available sulfamethox azole 800 mg-trimetho prim 160 mg tablet TAKE 1 TABLET BY MOUTH TWICE A DAY FOR 7 DAYS active Not Available Not Available No t Available acetaminoph en 500 mg tablet TAKE 2 TABLETS BY MOUTH EVERY 8 HOURS active Not Available Not Available No t Available Dulcolax (bisacodyl) 10 mg rectal suppository Insert 1 supposito ry every day by rectal route as needed for 10 days. 2021 active Not Available Not Available Not Avai lable oxycodone-a cetaminophe n 5 mg-325 mg tablet TAKE 1 TABLET BY MOUTH 3 TIMES A DAY NEEDED FOR SEVERE PAIN 08/05 completed Not Available Not Available Not Available baclofen 10 mg tablet TAKE 1 TABLET BY MOUTH TWICE A DAY NEEDED 08/05 completed Not Available Not Available Not Available clotrimazol e-betametha sone 1 %-0.05 % topical cream APPLY TO AFFECTED AREA TWICE A DAY FOR 14 DAYS 08/05 completed Not Available Not Available Not Available gabapentin 300 mg capsule TAKE 1 CAPSULE BY MOUTH TWICE A DAY active Not Available Not Available No t Available omeprazole 20 mg capsule,del ayed release TAKE 1 TABLET (20 MG TOTAL) BY MOUTH 2 (TWO) TIMES A DAY BEFORE MEALS. active Not Available Not Available No t Available fluticasone propionate 50 mcg/actuati on nasal spray,suspe nsion SPRAY 2 SPRAYS INTO EACH NOSTRIL ONCE DAILY FOR 14 DAYS 08/05 completed Not Available Not Available Not Available sertraline 50 mg tablet TAKE 3 TABLETS BY MOUTH EVERY MORNING active Not Available Not Available No t Available doxycycline hyclate 100 mg tablet TAKE 1 TABLET BY MOUTH TWICE A DAY FOR 10 DAYS active Not Available Not Available No t Available oxycodone 5 mg tablet TAKE 1 TABLET BY MOUTH EVERY 4 HOURS NEEDED FOR PAIN 08/05 completed Not Available Not Available Not Available cyclobenzap rine 5 mg tablet TAKE 1 TABLET BY MOUTH THREE TIMES A DAY NEEDED 08/05 completed Not Available Not Available Not Available cyclobenzap rine active Not Available Not Available Not Available Creon 3,000 unit-9,500 unit-15,000 unit capsule,del ayed release TAKE 1 CAPSULE BY MOUTH THREE TIMES A DAY PLEASE TAKE BEFORE MEALS . 08/05 completed Not Available Not Available Not Available Vitals Date Recorded Body temperature Oxygen saturation Respiratory rate Heart rate Systolic And Diastolic Provider Name and Address Organization Details Last Updated DateTime 2 99 [degF] 97 % 20 /min 95 /min 118/72 mm[Hg] Not Available [facility] 17:32:31 Date Recorded Respiratory rate Heart rate Body temperature Oxygen saturation Systolic And Diastolic Provider Name and Address Organization Details Last Updated DateTime 2 20 /min 93 /min 98.4 [degF] 97 % 114/68 mm[Hg] Not Available [facility] 18:19:59 Social History Question Answer Notes LastModified by Organizat ion Details LastModified Time Tobacco Smoking Status Former Smoker December Nabeel, KHALIF [address], [place], [address], [place] [facility] 08/05/2021 17:42:55 Do You Have An Advance Directive? No Information not available 08/05/2021 What Is Your Code Status? Full Code [email or web address] Information not available 08/05/2021 Within The Past 12 Months, Has It Happened That The Food You Bought Just Didn't Last And You Didn't Have Money To Get More. No [email or web address] Information not available 08/05/2021 Within The Past 12 Months, Have You Worried That Your Food Would Run Out Before You Got Money To Buy More. No Information not available 08/05/2021 Fall Risk: Do You Feel Unsteady When Standing Or Walking? Yes Information not available 08/05/2021 Excessive Alcohol Or Drug Use No [email or web address] Information not available 08/05/2021 Does This Patient Have A PCP? Yes [email or web address] Information not available 08/05/2021 How Many Years Have You Smoked Tobacco? 4 [email or web address] Information not available 08/05/2021 Sex: Unknown Functional Status Question Answer Note LastModified by Organizat ion Details LastModified Time Do you use any illicit or recreational drugs? No [email or web address] Information not available 08/05/2021 Do you or have you ever used any other forms of tobacco or nicotine? No Information not available 08/05/2021 What is your level of alcohol consumption? None [email or web address] Information not available 08/05/2021 Mental Status None recorded. Family History Nothing Reported. Medical History Condition Response Diabetes N Coronary Artery Disease N CHF N Parkinson's Disease N Cancer N Stroke N Dementia N Asthma N Hypothyroidism N Depression Y COPD N High Cholesterol N Rheumatoid Arthritis N Pulmonary Embolism N Hypertension N A-fib N Osteoporosis N Kidney Disease N Gynecological HistoryNo gynecological history recorded. Obstetrics History GPAL:G 0 P 0 0 0 0 Past Encounters Encounter ID Performer Location Encounter Start Date Encounter Closed Date Diagnosis/Indication Diagnosis SNOMED-CT Code Diagnosis ICD10 Code Diagnosis IMO Codes Diagnosis Note [id number] December KHALIF Lees [facility] [address] [place] [address] 08/05/2021 17:10:46 08/11/2021 15:11:10 Increased frequency of urination 476979746 R35.0 Constipation 04312845 K5 9.00 [id number] STEVENMaksim ROBLES NP [facility] [address] [place] [address] 09/24/2021 18:06:22 09/25/2021 13:00:23 Open wound of left hand [id number] S61.402D Puncture w ound of hand 936955983 S61.432D Health Concerns Section Related Observation LastModified by Organization Detai ls LastModified Time None Recorded Concern Status LastModified by Organization Details LastModified Time None Recorded Advance Directives Directive N: Payers Insurance Date Sequence Insurance Name Policy Number Policy Alexander Covered Member ID Alexander Member ID Guarantor Name 09/26/2021 1 [place]IC[place]: [employer] Rachna Miramontes [id number] Rachna Miramontes 08/05/2021 1 *SELF PAY* Rachna Miramontes [id number] Rachna Miramontes 09/25/2021 2 [facility] MEDNET (INDEMNITY) [id number] Rachna Miramontes [id number] Rachna Miramontes 09/25/2021 2 [facility] GIC INDEMNITY PLAN (INDEMNITY) [id number] Rachna Miramontes [id number] Rachna Miramontes Notes Date Note Type Note Provider Name and Address Organization Details Recorded Time 08/05/2021 text/html General HPI Template - DHReported by Patient 80 y/o female patient with complex PMHx of aortic regurgitation, constipation, rectal prolapse, chronic pain syndrome, osteoarthritis, and a plethora of health complaints. Her main complain is her abdominal discomfort radiating to right CVA, small bowel movements, urinary frequency, and low grade temp. PSH of cholecystectomy, rectoplexy, hysterectomy, ventral hernia, and right hip labral tear with arthroscopic repair. She is followed by GI located in [place].She has yet to make an appointment with GI due to transportation, but she will make an appointment to further eval. Patient went to [address] [facility] with CT scan revealing gas and stool . States she has to stimulate her levator muscle in order to have a bowel movement. States when she compresses on certain back, or pelvic muscles she is able to have a large BM.She has no history of kidney stones and states she drinks a lot of water . She takes Miralx, fiber, and suppository to assist with constipation. Lesia Lees NP [address], [place], [address], [place] [facility] 08/08/2021 21:55:50 09/24/2021 text/html 80 year-old female with history of rectal prolapse, aortic regurgitation, arthritic knees, who calls to home to evaluate her left hand for a wound.About 2 weeks ago she was gardening, slipped and fell and put a stick into her hand. She went to urgent care and they cut it, gettin gout only blood. She was placed on bactrim and completed it. She noticed that about 2 days ago the area began draining purulence. SHe has been able to drain it from the wound every day since. She is worried for infection.She denies any redness, fevers, or increased pain. There is a tender area to the hand. She can move her hand without difficulty. She denies any weakness There is some numbness where the wound is and has been that way since getting it numbed at the urgent care STEVEN ROBLES NP [address], [place], [address], [place] [facility] 09/24/2021 18:52:51 OBGyn Episode No OBEpisode recorded.
--- NOTE | 2025-05-28 22:08 | MHC.CM.ED ---
CM met with patient at the request of Dr. Boyce. Pt called 911 with emotional distress, multiple medical complaints. Pt is very anxious. Her medical work-up is benign. Pt lives alone. She has a cat. She has a walker and a cane. She does not drive, as she does not have a car. 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 Pt freely admits to hoarding in her home. She admits that she has papers everywhere, but she has had too much pain to do anything about her belongings. She has multiple providers, many in [place]. Patient talks incessantly about her medical history from 30-40 years ago. She has self diagnosed herself many times. She is sure she has achlalcia. She denies depression, and adamantly denies being bipolar. Her medical record speaks to anxiety, bipolar, fibromylagia, and GI issues. Pt continually speaks, making it difficult for CM to ask her simple questions. She has no services, but does say she had a [employer] DRIVER for about a month from [facility]. She no longer comes to her home. She does not have any teeth or dentures, so foods can be problematic. She states she cooks. She states she sees a psychiatrist-[facility] psych clinical nurse specialist [phone]. She is agreeable to PT and psych consult. Provider and primary RN aware of above conversation. CARE team given report of above. CM will hold on making any referrals pending psych/CARE team evaluation. Pt has a niece in [facility] [phone]. CM will hold on filing with [facility] until CARE/psych evaluation regarding hoarding and self neglect. CM will follow.
[2025-05-29] VITALS (10 sets, daily range): BP systolic 90–140; BP diastolic 41–69; PULSE 85–96; RESP 16–20; TEMP 36.2–36.9; O2SAT 95–100
--- NOTE | 2025-05-29 07:47 | PHA.MEDREC ---
Pharmacy Consult ? Medication Reconciliation Pharmacy has reviewed the medication reconciliation completed by nursing. Pharmacy claims show pt takes gabapentin 300 mg TID, however pt claims she is taking 2 capsules with every meal. Although claims do not match this, nursing did enter this correctly on how pt is taking this, recently prescribed 05/26/25 for 90 days.
--- NOTE | 2025-05-29 11:00 | PC.NURSE ---
Report given to Amanda LEAL by phone. Plan to move the patient from ED 21 to Overflow.
--- NOTE | 2025-05-29 12:00 | PC.NURSE ---
Pt received from main ED. A&O X4 VSS NAD No complaints, ambukated fro stretcher to bed in room without assist using cane.
--- NOTE | 2025-05-29 12:37 | PC.NURSE ---
Pt C/O right buttuck pain radiating to thigh. Also noted to be hypotensive by tech. Provider in aware and evaluating pt. Pt also c/o dizziness.
--- NOTE | 2025-05-29 14:48 | PC.NURSE ---
BP reported to provider- awaiting new orders
--- NOTE | 2025-05-29 15:58 | P.CNPS_ITS ---
History of Present Illness Date of Service: 05/29/2025 Chief Complaint: Emotional Distress Dizzy GI Pain Etc Reason for Consult: ?bev Sources of Information: patient interviewed, chart reviewed and crisis/core team assessment reviewed HPI Narrative: Ms. Miramontes is an 84 year-old woman who self presented initially reporting right sided abdominal pain and right leg pain. She has been seen for same concern at [facility] and [facility]. Pt was noted to present as hyperverbal and there was concern in terms of mental health affecting her ability to function. She was initially seen by care team- who reached out to her OP psych provider, Ni Case who had reported did not have hx of bipolar and she suspected she is mostly anxious. Pt seen in the ED. Pt presents as pleasant. She tells this content writer physical symptoms that led to her to go to now 3 different ED. She reports she had been a very active and fit person. 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 She is very hyperverbal and at times difficult to interrupt. She goes into all history of her career and influence on her students to make the point that she was very physically fit and independent and that for the most part she has high tolerance to physical pain and therefore, for her to feel this pain is concerning. She talks at [facility] about his diagnoses from medical providers or dismissal of her initial concerns and this is why she insists she needed to come to this hospital to get a 3rd opinion. She reports most of her care is between [facility] and [facility]. She tells this content writer she thought she could be send from here to [facility]. She appears familiar with multiple medical terms and reports over her life she has been an avid reader of medical journals like [facility] and [facility]. She reports she does think she needs more help at home. She reports some days ago she was home and felt like she was passing out and got concern that she was alone. She reports she currently declines referral to [facility] as she hopes to move with her niece in [place]. She denies SI/HI. She did not seem internally preoccupied. She reports her mood is usually upbeat. She did not appear particularly anxious. She did seem to have difficulty letting the other person speak or end conversation even when content writer reminded her that interview had to end. Past Psychiatric History: Pt denies hx of inpt admission. She is currently on sertraline. No hx of suicide attempts per pt. Medical Evaluation Reviewed: Yes Diagnostics Vital Signs (24Hr): Vital Signs - 24 hr 05/28/25 16:35 05/28/25 18:00 05/29/25 02:29 Temperature 98.1 F 98.2 F Pulse Rate 99 99 Respiratory Rate 18 18 17 Blood Pressure 165/73 H 158/72 H Pulse Oximetry 94 93 Oxygen Delivery Method Room Air Room Air 05/29/25 02:51 05/29/25 05:37 05/29/25 12:00 Temperature 98.0 F 98.0 F 98.4 F Pulse Rate 87 85 91 Respiratory Rate 17 16 18 Blood Pressure 95/41 L 131/69 112/57 L Pulse Oximetry 96 100 95 Oxygen Delivery Method Room Air Room Air Room Air 05/29/25 13:00 05/29/25 13:02 05/29/25 13:04 Temperature Pulse Rate 92 96 96 Respiratory Rate Blood Pressure 140/61 H 130/61 130/60 Pulse Oximetry Oxygen Delivery Method 05/29/25 14:00 05/29/25 14:48 Temperature 97.2 F Pulse Rate 88 Respiratory Rate 18 Blood Pressure 93/65 90/60 Pulse Oximetry 96 Oxygen Delivery Method Room Air BMI result Body Mass Index 27.6 Labs 05/28/25 15:27 05/28/25 15:27 Labs: Laboratory Results - last 48 hr 05/28/25 05/28/25 15:27 15:44 WBC 4.7 L RBC 3.96 L Hgb 10.1 L Hct 32.1 L MCV 81.1 MCH 25.5 L MCHC 31.5 RDW 17.0 H Plt Count 170 MPV 9.0 L Immature Gran % (Auto) 0.4 Neut % (Auto) 69.3 Lymph % (Auto) 21.9 [place] % (Auto) 6.7 Eos % (Auto) 1.5 Baso % (Auto) 0.2 Lymph # (Auto) 1.0 L [place] # (Auto) 0.3 Eos # (Auto) 0.1 Baso # (Auto) 0.0 Abs Immat Gran (auto) 0.02 Absolute Neuts (auto) 3.2 Absolute Nucleated RBC 0.000 Nucleated RBC % (auto) 0.0 PT 12.8 INR 1.0 Sodium 142 Potassium 4.0 Chloride 106 Carbon Dioxide 28 Anion Gap 12 BUN 16 Creatinine 0.78 Estim Creat Clear Calc 43.2 Estimated GFR > 60 Random Glucose 90 Calcium 9.4 Total Bilirubin 0.5 Direct Bilirubin 0.2 AST 25 ALT 12 Alkaline Phosphatase 73 Troponin I High Sens 3.2 C-Reactive Protein < 0.10 Total Protein 7.4 Albumin 4.7 Lipase 25 Urine Color Yellow Urine Appearance Cloudy Urine pH 5.5 Ur Specific [place] 1.010 Urine Protein Negative Urine Glucose (UA) Negative Urine Ketones Negative Urine Blood Negative Urine Nitrite Negative Ur Leukocyte Esterase Negative Urine Opiates Screen Not Detected Ur Buprenorphine Scrn Not Detected Ur Oxycodone Screen Positive H Urine Methadone Screen Not Detected Urine Fentanyl Screen Not Detected Ur Barbiturates Screen Not Detected Ur Phencyclidine Scrn Not Detected Ur Amphetamines Screen Not Detected U Benzodiazepines Scrn Not Detected Urine Cocaine Screen Not Detected U Marijuana (THC) Screen Not Detected Influenza Type A (PCR) NEGATIVE Influenza Type B (PCR) NEGATIVE RSV RNA Qual (PCR) NEGATIVE SARS-CoV-2 RNA (RT-PCR) NEGATIVE Imaging Radiology Impressions: ITS Impressions Abdomen/Pelvis CT 05/28/25 16:40 IMPRESSION: Inferior portion of the cecum appears thick walled which could be due to nondistention. However, other etiologies such as neoplasm, inflammatory bowel disease, infection, and ischemia are in the differential. Rectosigmoid anastomosis and postsurgical changes in the epigastric region with herniation of a portion of the greater omentum. Stable Moderate sliding hiatal hernia, stable. Splenomegaly, chronic Fleischner guidelines were followed. Electronically signed by: Martin Lr MD 05/28/2025 05:14 PM EST RP Head CT 05/28/25 16:40 IMPRESSION: No acute intracranial abnormality. White matter changes likely related to small vessel angiopathy. Electronically signed by: Martin Lr MD 05/28/2025 05:04 PM EST RP Mental Status Exam Mental Status Exam Narrative: Appearance: wearing hospital gown, fair hygiene, in NAD Behavior: cooperative Psychomotor: no agitation or retardation noted Speech: mostly clear, hyperverbal, not pressured, spontaneous TP: circumstantial at times others able to get to initial question asked. TC: deterioration of her physical health, being in pain, wondering if something is being missed. Mood: mostly upbeat Affect: bright, non labile SI: denies HI: none VH/AH: no overt signs Delusions: no overt delusional content noted or reported Insight/judgment: fair x 2. memory/cog: alert, oriented x 4. Medications Medications Current Medications Clonazepam (Clonazepam 0.5 Mg Tablet) 0.5 mg PO DAILY [facility] Last Admin: 05/29/25 08:19 Dose: 0.5 mg Gabapentin (Gabapentin 300 Mg Capsule) 600 mg PO TIDWM [facility] Last Admin: 05/29/25 13:14 Dose: 600 mg Omeprazole (Omeprazole 20 Mg Capsule.Dr) 20 mg PO DAILY@0630 [facility] Last Admin: 05/29/25 08:19 Dose: 20 mg Sertraline HCl (Sertraline Hcl 50 Mg Tablet) 150 mg PO DAILY [facility] Last Admin: 05/29/25 08:19 Dose: 150 mg Allergies Allergies Allergy/AdvReac Type Severity Reaction Status Date / Time amoxicillin (AMOXICILLIN) Allergy Unknown VIRAL Verified 05/28/25 14:21 MENINGITIS Assessment & Plan Assessment & Plan (1) Mood disorder: Status: Acute Code(s): F39 - Unspecified mood [affective] disorder Plan Ms. Miramontes is an 84 year-old woman who self presented initially due to right sided abdominal pain and right leg pain. She has been to [facility] and [facility] for same concerns in past few weeks. She has been noted to be hyperverbal, difficult to interrupt.She is also perseverating on her health and undiagnosed condition. She does not present as anxious. Some awareness that she needs more supports at home and that she is not as physically fit as she used to be. No SI/HI. No VH/AH. No acute safety concerns in terms of psychiatric symptoms and it appears that her current presentation has been ongoing. At this time, I do not recommend inpatient level of care for psychiatric stabilization. Pt to continue treatment outpatient. Total time managing care of this patient today ____ minutes.
--- NOTE | 2025-05-29 19:33 | MHC.CM.ED ---
Addendum entered by aCrolyn Drew 05/30/25 18:53: Pt medically cleared for discharge home. Pt emotionally very upset. States cannot go home tonight. Primary RN agrees. Will discharge to home in the morning. CM will obtain a Lyft, as patient travels [place] [employer] [place] the community Addendum entered by Carolyn Drew 05/30/25 16:15: Discharge on hold. Rectal temp of 100.3 Will have medical workup Original Note: CM met with patient to discuss discharge planning. Psych consult: A&Ox4. Hyper verbal. Fixated on real and imagined medical issues. States she does not feel well enough to go home. PT recommends no skill. STR not an option. Pt has Medicare and [facility] insurance. Pt c/o stomach pain and bloating after eating. Provider aware. Pt had full medial work up-negative. Pt eating paola crackers. Pt difficult to question, as she speaks over the interviewer. Pt does agree that she needs some help at home. CM suggested she consider [facility], as she is very social and admits to being very lonely and [facility] could be a good fit for her. Pt absolutely refuses to even speak about it. Pt then became very teary and crying telling CM about all of her losses. Pt became especially upset speaking about her mother's loss. Pt was 28 years old when her mother . She then was very upset about her family farm and how property was sold. Pt did mention that she was a [employer], so CM asked if she would like to speak with our [facility] Lory. Pt is agreeable. CM contacted Pastor Corley, who will see the patient in the morning. CM will refer patient to [facility] for home assistance. CM will file with [facility] for self neglect and hoarding. Pt will probably discharge to home after meeting with Pastor Corley in the morning.
--- NOTE | 2025-05-30 00:45 | PC.NURSE ---
Took over care at 23:00, pt reposition for comfort, pt sleeping at this time. no sign of distress.
--- NOTE | 2025-05-30 00:58 | PC.NURSE ---
Pt assisted to the bathroom, pt placed back in bed, bed alarm on for safety.
--- NOTE | 2025-05-30 05:23 | PC.NURSE ---
pt medicated per aug, Tylenol given for lower back pain.
[2025-05-30 06:03] VITALS: BP 116/64; PULSE 90; RESP 16; TEMP 36.6; O2SAT 98
--- NOTE | 2025-05-30 11:01 | PC.NURSE ---
pt with multiple complaints - pain in her right buttocks to right thigh and leg, her abd on the right side. she states she has recently lost a lot of her previous mobility and reports difficulty keeping food down. pt had good bed mobility, strength, and flexibility. She explains at length multiple health problems she has had over the past several decades. AOx4 She ate 50% of breakfast and took morning medications. Pastor Corley in to see her now.
--- NOTE | 2025-05-30 12:10 | MHC.CM.ED ---
Patient remains in ER overflow. Patient passed physical therapy. No inpatient psych needs per Care Team and Psych consult. Pastor Corley spent 90 mins with patient. Patient has reported to Tawana LEAL that she can't go home because she is in pain. Tiera RAMIREZ aware and asked to see patient. Continue to monitor for d/c needs.
[2025-05-30 14:07] VITALS: BP 105/56; PULSE 88; RESP 18; TEMP 37.3; O2SAT 97
[2025-05-30 15:40] VITALS: TEMP 38
--- NOTE | 2025-05-30 15:40 | PC.NURSE ---
rectal temp done - 100.4 Tiera RAMIREZ notified. DC on hold for now
[2025-05-30 16:08] LABS: MANUAL DIFF FLAG NO
[2025-05-30 16:15] LABS: Hematocrit 33.2 % (37.0-47.0); Hemoglobin 10.4 g/dl (12.0-16.0); Imm Gran Abs Auto 0.03 X10*3/uL (0.00-0.03); Imm Gran Pct Auto 0.6 % (0.0-0.4); Lymphocytes Absolute Auto 1.2 X10*3/uL (1.2-4.9); Mean Corpuscular HGB Conc 31.3 g/dl (31.0-35.0); Mean Corpuscular Hemoglobin 25.7 pg (27.0-33.0); Mean Corpuscular Volume 82.0 fL (80.0-98.0); NRBC Abs Auto 0.000 X10*3/uL (0.0-0.012); NRBC Pct Auto 0.0 /100WBC (0.0-0.2); Platelet Count 194 X10*3/uL (160-400); Red Blood Count 4.05 X10*6/uL (4.20-5.50); White Blood Count 4.9 X10*3/uL (4.8-10.8)
--- NOTE | 2025-05-30 16:21 | PC.NURSE ---
labs and viral swabs sent down, CXR pending. UA pending
[2025-05-30 16:27] LABS: Alanine Aminotransferase 12 U/L (0-31); Albumin Level 4.7 g/dL (3.5-5.0); Alkaline Phosphatase 69 U/L (39-117); Anion Gap 11 (12-20); Aspartate Amino Transferase 21 U/L (5-31); Blood Urea Nitrogen 22 mg/dL (9-16); Calcium 9.3 mg/dL (8.4-10.2); Carbon Dioxide 29 mmol/L (22-29); Chloride 104 mmol/L (96-108); Creatinine Clr Calc Pharmacy 38.8; Estimated Glomerular Filt Rate > 60; Magnesium 2.1 mg/dL (1.6-2.6); Potassium 4.0 mmol/L (3.3-5.1); Sodium 140 mmol/L (135-145); Total Protein 7.6 g/dL (6.5-8.0)
[2025-05-30 16:49] LABS: Resp Syncy Virus RNA Qual PCR NEGATIVE (Negative); SARS COV2 PCR INHOUSE NEGATIVE (Negative)
--- NOTE | 2025-05-30 16:59 | PC.NURSE ---
pt ate 100% of lunch and dinner
[2025-05-30 17:35] LABS: Appearance Urine Clear; Glucose Urine UA Negative (Negative); PH 5.5 (5.0-9.0); Specific Gravity - Urine 1.015 (1.005-1.025)
[2025-05-30 17:46] VITALS: TEMP 38
[2025-05-30] MEDS: oxyCODONE HCl Immed Release 5 MG TABLET 2.5 MG PO (20:22)
[2025-05-30 21:52] VITALS: BP 97/52; PULSE 88; RESP 14; TEMP 36.5; O2SAT 96
--- NOTE | 2025-05-30 22:46 | PC.NURSE ---
Assumed care of pt at 1900. PT a/ox3, vss, skin pwd and intact. PT utilizing compression boots as per order. Using cane with standby assist to the bathroom. PT complains of 101/10 right knee pain, and multiple other complaints . PT tearful and requesting 2.5mg of oxycodone. PT medicated as per AUG. Safety precautions in place. Plan for discharge in the morning. PT is aware.
[2025-05-31 02:38] VITALS: BP 139/69; PULSE 88; RESP 14; O2SAT 96
[2025-05-31 06:00] VITALS: BP 140/74; PULSE 89; RESP 16; TEMP 36.6; O2SAT 93
[2025-05-31 08:54] VITALS: BP 122/71; PULSE 79; RESP 16; TEMP 36.6; O2SAT 96
[2025-05-31 08:55] VITALS: BP 122/71; PULSE 79; RESP 16; TEMP 36.6; O2SAT 96
== END 2025-05-31 08:56 | disposition home or self-care (01) ==
PROVIDERS: Physician Assistant Medical; Emergency Provider Emergency Medicine; PCP Nurse Practitioner Family
DX: F39 Unspecified mood [affective] disorder (principal); R10.9 Unspecified abdominal pain; M25.561 Pain in right knee; R51.9 Headache, unspecified; Z03.818 Encounter for observation for suspected exposure to other biological agents ruled out; Z79.899 Other long term (current) drug therapy
CPT/HCPCS: 36415; 70450; 71046; 74177; 80053; 80307; 81003; 82248; 83690; 83735; 84484; 85025; 85610; 86140; 87637; 93005; 97162; 99285; Q9967; S9485

== ENCOUNTER → 2025-05-28 14:20 | Outpatient (BNV) | payer MEDICARE, OTHER, SELFPAY | PROVIDERS: Emergency Provider Emergency Medicine; PCP Nurse Practitioner Family; Visit Provider Internal Medicine Cardiovascular Disease | DX: R42 Dizziness and giddiness (principal) | CPT/HCPCS: 93010 ==

== ENCOUNTER → 2025-05-28 15:18 | Outpatient (BNV) | payer MEDICARE, OTHER, SELFPAY | PROVIDERS: Emergency Provider Emergency Medicine; PCP Nurse Practitioner Family; Visit Provider Social Worker | DX: F39 Unspecified mood [affective] disorder (principal) | CPT/HCPCS: 99285 ==

== ENCOUNTER → 2025-05-28 16:24 | Outpatient (BNV) | payer MEDICARE, OTHER, SELFPAY | PROVIDERS: Emergency Provider Emergency Medicine; PCP Nurse Practitioner Family; Visit Provider Radiology Diagnostic Radiology | DX: R16.1 Splenomegaly, not elsewhere classified (principal); K45.8 Other specified abdominal hernia without obstruction or gangrene; R90.82 White matter disease, unspecified | CPT/HCPCS: 70450; 74177 ==

== ENCOUNTER → 2025-05-30 15:40 | Outpatient (BNV) | payer MEDICARE, OTHER, SELFPAY | PROVIDERS: Emergency Provider Emergency Medicine; PCP Nurse Practitioner Family; Visit Provider Radiology Diagnostic Radiology | DX: R50.9 Fever, unspecified (principal); R53.1 Weakness | CPT/HCPCS: 71046 ==